=== PATIENT | male | born 1965 | race Caucasian/White ===

== ENCOUNTER 2019-02-24 16:36 | Emergency (ER) | payer SELFPAY ==
--- NOTE | 2019-02-24 18:09 | EDM.PDOC ---
ED HPI GENERAL MEDICAL PROBLEM - General Chief Complaint: Abdominal Pain Stated Complaint: GASTROINTESTINAL PROBLEM Time Seen by Provider: 02/24/19 17:03 - History of Present Illness INITIAL COMMENTS - FREE TEXT/NARRATIVE: 54-year-old male presents to emergency room with abdominal discomfort. This is been an ongoing problem for several weeks. When the patient has a BM he passes very small amounts of mucousy blood streaks material. He's had some abdominal distention and discomfort. He's not had any nausea and vomiting up until this morning he didn't throw up but he couldn't drink his coffee. He has not had any fevers or chills he is passed a few blood clots and he's noticed some blood in the toilet. His appetite is diminished. The patient adds that he has not had a solid normal bowel movement in 3 months. Rectal Pain Score (Numeric/FACES): 10 - Related Data Allergies Allergy/AdvReac Type Severity Reaction Status Date / Time No Known Allergies Allergy Verified 02/24/19 16:49 Home Meds: Home Meds Docusate Sodium [Colace] 100 mg PO DAILY 02/24/19 [History] Ibuprofen [Motrin] 600 mg PO BID 02/24/19 [History] Past Medical History Musculoskeletal History: Reports: Back Pain, Chronic - Past Surgical History GI Surgical History: Reports: Cholecystectomy Musculoskeletal Surgical History: Reports: Carpal Tunnel Social & Family History - Tobacco Use Smoking Status *Q: Current Every Day Smoker Years of Tobacco use: 35 Packs/Tins Daily: 1 - Caffeine Use Caffeine Use: Reports: Coffee, Soda - Recreational Drug Use Recreational Drug Use: No ED ROS GENERAL - Review of Systems Review Of Systems: See Below Constitutional: Reports: No Symptoms HEENT: Reports: No Symptoms Respiratory: Reports: No Symptoms Cardiovascular: Reports: No Symptoms GI/Abdominal: Reports: Constipation (Possible), Diarrhea (Small amounts of mucousy stool some blood). Denies: Nausea, Vomiting : Reports: No Symptoms Musculoskeletal: Reports: No Symptoms Skin: Reports: No Symptoms Neurological: Reports: No Symptoms Psychiatric: Reports: No Symptoms ED EXAM, GI/ABD - Physical Exam Exam: See Below Exam Limited By: No Limitations General Appearance: Alert, No Apparent Distress Neck: Normal Inspection, Supple, Non-Tender, Full Range of Motion Respiratory/Chest: No Respiratory Distress, Lungs Clear, Normal Breath Sounds Cardiovascular: Regular Rate, Rhythm, No Edema, No Murmur GI/Abdominal Exam: Normal Bowel Sounds, Soft, Other (he is obese) Rectal (Males) Exam: Normal Rectal Tone, Heme + Stool, Other (The patient did not tolerate a digital rectal exam very well and was hard to get a good feel of the prostate however he has a large mass in the area where the prostate could be consistent with a enlarged prostate however I cannot exclude another mass. He has a when feels like a small fissure on digital exam a few small hemorrhoids ) Neurological: Alert, Oriented, Normal Cognition Course - Vital Signs Last Recorded V/S: Last Vital Signs Temp 36.2 C 02/24/19 16:48 Pulse 70 02/24/19 16:48 Resp 20 02/24/19 16:48 BP 154/92 H 02/24/19 16:48 Pulse Ox 98 02/24/19 16:48 - Orders/Labs/Meds Orders: Active Orders 24 hr Category Date Time Status Abdomen 2V AP Flat Upright [CR] Stat Exams 02/24/19 18:02 Taken Labs: Laboratory Tests 02/24/19 02/24/19 Range/Units 18:21 18:21 WBC 12.26 H (4.23-9.07) K/mm3 RBC 5.70 (4.63-6.08) M/mm3 Hgb 16.6 (13.7-17.5) gm/L Hct 48.5 (40.1-51.0) % MCV 85.1 (79.0-92.2) fl MCH 29.1 (25.7-32.2) pg MCHC 34.2 (32.2-35.5) g/dl RDW Std Deviation 44.5 H (35.1-43.9) fL Plt Count 243 (163-337) K/mm3 MPV 9.2 L (9.4-12.3) fl Neutrophils % (Manual) 68 H (40-60) % Band Neutrophils % 0 (0-10) % Lymphocytes % (Manual) 23 (20-40) % Atypical Lymphs % 0 % Monocytes % (Manual) 7 (2-10) % Eosinophils % (Manual) 2 (0.8-7.0) % Basophils % (Manual) 0 L (0.2-1.2) Platelet Estimate Adequate RBC Morph Comment Normal Sodium 138 (136-145) mEq/L Potassium 4.2 (3.5-5.1) mEq/L Chloride 103 (98-107) mEq/L Carbon Dioxide 26 (21-32) mEq/L Anion Gap 13.2 (5-15) BUN 13 (7-18) mg/dL Creatinine 0.8 (0.7-1.3) mg/dL Est Cr Clr Drug Dosing 115.04 mL/min Estimated GFR (MDRD) > 60 (>60) mL/min BUN/Creatinine Ratio 16.3 (14-18) Glucose 98 (74-106) mg/dL Calcium 9.6 (8.5-10.1) mg/dL Total Bilirubin 0.9 (0.2-1.0) mg/dL AST 16 (15-37) U/L ALT 18 (16-63) U/L Alkaline Phosphatase 113 (46-116) U/L Total Protein 7.9 (6.4-8.2) g/dl Albumin 4.1 (3.4-5.0) g/dl Globulin 3.8 gm/dL Albumin/Globulin Ratio 1.1 (1-2) - Re-Assessments/Exams Free Text/Narrative Re-Assessment/Exam: 02/24/19 19:36 Reviewed the labs with the patient and the x-ray results and patient x-ray appears like he has a full stool pattern in the ascending transverse and descending colon and about longterm through the sigmoid colon the rectum is clear and a good portion of the sigmoid colon is clear. We have a couple options at this point we can go to a CT of the abdomen and pelvis or we can try mag citrate get the stool situation cleared up and the patient would like to try the mag citrate first. I've explained to him in no uncertain terms that he needs to establish with a regular physician and have a repeat digital rectal exam to reevaluate the prostate/mass issue. CAT scan may or may not show this. However I told the patient that he must get his prostate rechecked and he agrees to do so he also agrees to return to the emergency room with any questions or problems. Regards to his mild rectal bleeding I believe is probably anal in origin. However, again I cannot be certain of this once the constipation stool accumulation is taking care of I would anticipate this would resolve but if it doesn't that would be further indication to have a colonoscopy done. Departure - Departure Time of Disposition: 19:39 Disposition: Home, Self-Care 01 Clinical Impression: Constipation - Discharge Information Referrals: PCP,None [Primary Care Provider] - Forms: ED Department Discharge Additional Instructions: Return to emergency room if any questions problems worsening symptoms. Go to the drugstore tack picker 4 bottles of mag citrate. Take them home, store two just to have on hand. Drink the other 2 tonight. They go down better cold so served with ice. Drink the first one then repeat the second one 30-40 minutes later. Follow-up in the Hospital clinic this next week to establish care to get rechecked. In the near future you need a repeat prostate exam as it feels like a prostate is enlarged. And as we discussed I cannot exclude a mass at this point. Phone number to the Hospital clinic is [phone] - My Orders Last 24 Hours: My Active Orders 02/24/19 18:02 Abdomen 2V AP Flat Upright [CR] Stat - Assessment/Plan Last 24 Hours: My Active Orders 02/24/19 18:02 Abdomen 2V AP Flat Upright [CR] Stat
--- NOTE | 2019-02-28 09:43 | CR ---
Abdomen: Supine and upright views of the abdomen were obtained. Comparison: No previous abdominal x-ray. Mild increased stool is noted throughout the colon. Bowel gas pattern is otherwise unremarkable. Calcifications are seen within the pelvis which are compatible with phleboliths. Surgical clips are seen from prior cholecystectomy. Bony structures are unremarkable. Impression: 1. Mild increased stool within the colon. Nothing acute is seen on two-view abdominal x-ray. Diagnostic code #2
== END 2019-02-24 19:58 | disposition home or self-care (01) ==
LOC: JD.ED 16:36
DX: K59.00 Constipation, unspecified (principal); F17.210 Nicotine dependence, cigarettes, uncomplicated; Z90.49 Acquired absence of other specified parts of digestive tract
CPT/HCPCS: 36415; 74019; 80053; 85007; 85027; 99282; 99284-25

== ENCOUNTER 2019-04-02 10:11 | Emergency (ER) | payer SELFPAY ==
[2019-04-02] MEDS ORDERED: Ondansetron 4 MG/2 ML SDV IVPUSH ONE ×2 (10:33→16:24)
[2019-04-02] MEDS ORDERED: HYDROmorphone 1 MG/ML Syringe IVPUSH ONE ×4 (10:33→16:13)
--- NOTE | 2019-04-02 10:38 | EDM.PDOC ---
ED HPI GENERAL MEDICAL PROBLEM - General Chief Complaint: Abdominal Pain Stated Complaint: ABDOMINAL PAIN FOLLOWING CHEMO Time Seen by Provider: 04/02/19 10:32 Source of Information: Reports: Patient, Family (son) History Limitations: Reports: No Limitations - History of Present Illness INITIAL COMMENTS - FREE TEXT/NARRATIVE: 54-year-old male presents to the ED with diffuse lower abdominal pain which is primarily constant but had does have a strong colicky component. Patient was diagnosed with a rectal mass when he seen Dr. Camarillo in the ED Feb 24 of this year. Subsequent investigations and biopsies proved this to be a rectal carcinoma Patient was diagnosed with a rectal carcinoma within the last month or so and is started chemotherapy last week for the first time. Was on a chemotherapy pump and Wednesday. Presumably leucovorin. States he feels nauseated especially if he tries to drink or eat. Having diffuse lower pelvic cramping pain with some increased stools mostly semi-formed. Small amounts of blood appreciated at times. No problems voiding. The primary reason for coming to the ED is the pain is out of control. Taking tramadol tablets at home with no relief. Onset: Gradual Onset Date: 04/01/19 (Charted having lower abdominal pain yesterday morning and is increased intensity as the day went on.) Duration: Hour(s):, Getting Worse Location: Reports: Abdomen (Diffuse lower abdominal pain associate with cramping and loose semi-formed stools.) Quality: Reports: Ache Severity: Severe (Deep aching pain 10 on a 10) Improves with: Reports: None ( and a 10), Other (Even almost did not give him much relief.) Worsens with: Reports: Other Context: Reports: Other (Seems to be worse or started since chemotherapy was given Wednesday by pump.). Denies: Activity, Exercise, Lifting, Sick Contact, Trauma Associated Symptoms: Reports: Loss of Appetite, Malaise, Nausea/Vomiting, Shortness of Breath. Denies: Confusion, Cough, Rash (Nausea with loss of appetite.), Seizure, Syncope Treatments LOFT RIGGER: Reports: Other (see below) (Tramadol tablets primarily for pain relief and Phenergan for nausea relief.) Abdomen Pain Score (Numeric/FACES): 10 - Related Data Allergies Allergy/AdvReac Type Severity Reaction Status Date / Time No Known Allergies Allergy Verified 04/02/19 10:21 Home Meds: Home Meds Docusate Sodium [Colace] 100 mg PO DAILY 02/24/19 [History] Ibuprofen [Motrin] 600 mg PO BID 02/24/19 [History] Ondansetron [Zofran] 4 mg BUCCAL Q6H PRN #15 tab 04/02/19 [Rx] Promethazine [Phenergan] 5 gm TOP ASDIRECTED 04/02/19 [History] oxyCODONE HCl/Acetaminophen [Oxycodone-Acetaminophen 5-325] 1 tab PO Q4HR PRN [History] oxyCODONE HCl/Acetaminophen [Percocet 5-325 mg Tablet] 1 - 2 each PO Q4H PRN # 36 tablet 04/02/19 [Rx] traMADol [Ultram] 50 mg PO BID PRN 04/02/19 [History] Past Medical History Musculoskeletal History: Reports: Back Pain, Chronic Oncologic (Cancer) History: Reports: Colon (Recently diagnosed with colon cancer low lying rectal carcinoma. Plan is to treated with chemotherapy to see if it can be shrunk prior to considering any surgical management. Apparently has metastatic disease diagnosed by PET scan as well.) - Past Surgical History GI Surgical History: Reports: Cholecystectomy Musculoskeletal Surgical History: Reports: Carpal Tunnel Social & Family History - Caffeine Use Caffeine Use: Reports: Coffee, Soda - Living Situation & Occupation Living situation: Reports: Single Occupation: Employed ED ROS GENERAL - Review of Systems Review Of Systems: See Below Constitutional: Reports: Malaise, Weakness, Fatigue, Decreased Appetite, Weight Loss. Denies: Fever, Chills HEENT: Reports: No Symptoms Respiratory: Reports: Shortness of Breath, Other (Port-A-Cath left upper anterior chest which is just being used now for chemotherapy.) Cardiovascular: Reports: Dyspnea on Exertion. Denies: Chest Pain, Blood Pressure Problem, Claudication, Edema, Lightheadedness, Orthopnea Endocrine: Reports: Fatigue GI/Abdominal: Reports: Abdominal Pain (Across his lower abdomen perhaps worse on the left side as compared to the right.), Constipation (History of recurrent problems with constipation due to rectal mass.), Nausea, Other (Recently diagnosed with rectal carcinoma and just started chemotherapy.) : Reports: Frequency. Denies: Incontinence Musculoskeletal: Reports: Back Pain, Joint Pain (Knees and neck at times) Skin: Reports: No Symptoms Neurological: Reports: No Symptoms Psychiatric: Reports: No Symptoms Hematologic/Lymphatic: Reports: No Symptoms Immunologic: Reports: No Symptoms ED EXAM, GI/ABD - Physical Exam Exam: See Below Exam Limited By: No Limitations General Appearance: Alert, WD/WN, Moderate Distress, Other (Temperatures 36.9. Pulse 72 and sinus respiratory is 18 BP 1 3497 O2 sats 100% on room air.) Eyes: Bilateral: Normal Appearance (No sclerae icterus or bloodflow pallor.) Throat/Mouth: Other Head: Atraumatic (Tongue is very dry and coated.), Normocephalic Neck: Normal Inspection, Supple, Non-Tender, Full Range of Motion. No: Lymphadenopathy (L), Lymphadenopathy (R) Respiratory/Chest: No Respiratory Distress, Lungs Clear, Normal Breath Sounds, No Accessory Muscle Use, Chest Non-Tender Cardiovascular: Normal Peripheral Pulses, Regular Rate, Rhythm, No Edema, No Gallop, No Murmur, No Rub GI/Abdominal Exam: Normal Bowel Sounds, Soft, No Mass (No palpable masses.), Guarding, Tender (Very tender left lower quadrant of the abdomen the distribution of the sigmoid colon.). No: Distended, Rigid (Guarding right left lower quadrant.), Rebound, Hepatomegaly, Splenomegaly (Male) Exam: No Hernia Back Exam: Normal Inspection, Decreased Range of Motion. No: CVA Tenderness (L) , CVA Tenderness (R) Extremities: Normal Inspection, Normal Range of Motion, Non-Tender Neurological: Alert, Oriented, CN II-XII Intact, Normal Cognition Psychiatric: Other Skin Exam: Warm (In a good deal of pain.), Dry, Intact, Normal Color, No Rash Course - Vital Signs Last Recorded V/S: Last Vital Signs Temp 36.9 C 04/02/19 10:24 Pulse 72 04/02/19 10:24 Resp 18 04/02/19 10:24 BP 134/97 H 04/02/19 10:24 Pulse Ox 100 04/02/19 10:24 - Orders/Labs/Meds Orders: Active Orders 24 hr Category Date Time Status Dextrose 5%-Lactated Ringers 1,000 ml Med 04/02/19 10:45 Active IV ASDIRECTED Sodium Chloride 0.9% [Normal Saline] 1,000 ml Med 04/02/19 12:30 Active IV ASDIRECTED Medication Orders Dextrose/Lactated Ringer's (Dextrose 5%-Lactated Ringers) 1,000 mls @ 999 mls/ hr IV ASDIRECTED MICHAELA Last Admin: 04/02/19 10:47 Dose: 999 mls/hr Sodium Chloride (Normal Saline) 1,000 mls @ 200 mls/hr IV ASDIRECTED MICHAELA Last Admin: 04/02/19 13:08 Dose: 200 mls/hr Labs: Laboratory Tests 04/02/19 04/02/19 04/02/19 Range/Units 10:50 10:50 10:50 WBC 9.35 H (4.23-9.07) K/mm3 RBC 5.51 (4.63-6.08) M/mm3 Hgb 15.9 (13.7-17.5) gm/dl Hct 46.9 (40.1-51.0) % MCV 85.1 (79.0-92.2) fl MCH 28.9 (25.7-32.2) pg MCHC 33.9 (32.2-35.5) g/dl RDW Std Deviation 42.4 (35.1-43.9) fL Plt Count 235 (163-337) K/mm3 MPV 9.4 (9.4-12.3) fl Neutrophils % (Manual) 73 H (40-60) % Band Neutrophils % 0 (0-10) % Lymphocytes % (Manual) 19 L (20-40) % Atypical Lymphs % 0 % Monocytes % (Manual) 4 (2-10) % Eosinophils % (Manual) 3 (0.8-7.0) % Basophils % (Manual) 1 (0.2-1.2) Platelet Estimate Adequate RBC Morph Comment Normal ESR 14 (0-15) mm/hr PT 11.3 (9.7-12.0) SECONDS INR 1.04 APTT 27 (22-31) SECONDS Sodium (136-145) mEq/L Potassium (3.5-5.1) mEq/L Chloride (98-107) mEq/L Carbon Dioxide (21-32) mEq/L Anion Gap (5-15) BUN (7-18) mg/dL Creatinine (0.7-1.3) mg/dL Est Cr Clr Drug Dosing mL/min Estimated GFR (MDRD) (>60) mL/min BUN/Creatinine Ratio (14-18) Glucose (74-106) mg/dL Lactic Acid (0.4-2.0) mmol/L Calcium (8.5-10.1) mg/dL Magnesium (1.8-2.4) mg/dl Total Bilirubin (0.2-1.0) mg/dL AST (15-37) U/L ALT (16-63) U/L Alkaline Phosphatase (46-116) U/L Troponin I (0.00-0.056) ng/mL C-Reactive Protein (<1.0) mg/dL NT-Pro-B Natriuret Pep (0-125) pg/mL Total Protein (6.4-8.2) g/dl Albumin (3.4-5.0) g/dl Globulin gm/dL Albumin/Globulin Ratio (1-2) Lipase (73-393) U/L Urine Color (Yellow) Urine Appearance (Clear) Urine pH (5.0-8.0) Ur Specific [place] (1.005-1.030) Urine Protein (Negative) Urine Glucose (UA) (Negative) Urine Ketones (Negative) Urine Occult Blood (Negative) Urine Nitrite (Negative) Urine Bilirubin (Negative) Urine Urobilinogen (0.2-1.0) Ur Leukocyte Esterase (Negative) Urine RBC (0-5) /hpf Urine WBC (0-5) /hpf Ur Epithelial Cells (0-5) /hpf Urine Bacteria (FEW) /hpf Urine Mucus (FEW) /hpf Ketones (0.0-0.3) mM 04/02/19 04/02/19 04/02/19 Range/Units 10:50 10:50 10:50 WBC (4.23-9.07) K/mm3 RBC (4.63-6.08) M/mm3 Hgb (13.7-17.5) gm/dl Hct (40.1-51.0) % MCV (79.0-92.2) fl MCH (25.7-32.2) pg MCHC (32.2-35.5) g/dl RDW Std Deviation (35.1-43.9) fL Plt Count (163-337) K/mm3 MPV (9.4-12.3) fl Neutrophils % (Manual) (40-60) % Band Neutrophils % (0-10) % Lymphocytes % (Manual) (20-40) % Atypical Lymphs % % Monocytes % (Manual) (2-10) % Eosinophils % (Manual) (0.8-7.0) % Basophils % (Manual) (0.2-1.2) Platelet Estimate RBC Morph Comment ESR (0-15) mm/hr PT (9.7-12.0) SECONDS INR APTT (22-31) SECONDS Sodium 139 (136-145) mEq/L Potassium 4.9 (3.5-5.1) mEq/L Chloride 104 (98-107) mEq/L Carbon Dioxide 31 (21-32) mEq/L Anion Gap 8.9 (5-15) BUN 18 (7-18) mg/dL Creatinine 0.9 (0.7-1.3) mg/dL Est Cr Clr Drug Dosing 99.14 mL/min Estimated GFR (MDRD) > 60 (>60) mL/min BUN/Creatinine Ratio 20.0 H (14-18) Glucose 113 H (74-106) mg/dL Lactic Acid 1.1 (0.4-2.0) mmol/L Calcium 9.0 (8.5-10.1) mg/dL Magnesium 2.0 (1.8-2.4) mg/dl Total Bilirubin 0.8 (0.2-1.0) mg/dL AST 21 (15-37) U/L ALT 38 (16-63) U/L Alkaline Phosphatase 109 (46-116) U/L Troponin I < 0.017 (0.00-0.056) ng/mL C-Reactive Protein 1.9 H* (<1.0) mg/dL NT-Pro-B Natriuret Pep 56 (0-125) pg/mL Total Protein 7.2 (6.4-8.2) g/dl Albumin 3.4 (3.4-5.0) g/dl Globulin 3.8 gm/dL Albumin/Globulin Ratio 0.9 L (1-2) Lipase 107 (73-393) U/L Urine Color (Yellow) Urine Appearance (Clear) Urine pH (5.0-8.0) Ur Specific [place] (1.005-1.030) Urine Protein (Negative) Urine Glucose (UA) (Negative) Urine Ketones (Negative) Urine Occult Blood (Negative) Urine Nitrite (Negative) Urine Bilirubin (Negative) Urine Urobilinogen (0.2-1.0) Ur Leukocyte Esterase (Negative) Urine RBC (0-5) /hpf Urine WBC (0-5) /hpf Ur Epithelial Cells (0-5) /hpf Urine Bacteria (FEW) /hpf Urine Mucus (FEW) /hpf Ketones (0.0-0.3) mM 04/02/19 04/02/19 Range/Units 10:50 11:48 WBC (4.23-9.07) K/mm3 RBC (4.63-6.08) M/mm3 Hgb (13.7-17.5) gm/dl Hct (40.1-51.0) % MCV (79.0-92.2) fl MCH (25.7-32.2) pg MCHC (32.2-35.5) g/dl RDW Std Deviation (35.1-43.9) fL Plt Count (163-337) K/mm3 MPV (9.4-12.3) fl Neutrophils % (Manual) (40-60) % Band Neutrophils % (0-10) % Lymphocytes % (Manual) (20-40) % Atypical Lymphs % % Monocytes % (Manual) (2-10) % Eosinophils % (Manual) (0.8-7.0) % Basophils % (Manual) (0.2-1.2) Platelet Estimate RBC Morph Comment ESR (0-15) mm/hr PT (9.7-12.0) SECONDS INR APTT (22-31) SECONDS Sodium (136-145) mEq/L Potassium (3.5-5.1) mEq/L Chloride (98-107) mEq/L Carbon Dioxide (21-32) mEq/L Anion Gap (5-15) BUN (7-18) mg/dL Creatinine (0.7-1.3) mg/dL Est Cr Clr Drug Dosing mL/min Estimated GFR (MDRD) (>60) mL/min BUN/Creatinine Ratio (14-18) Glucose (74-106) mg/dL Lactic Acid (0.4-2.0) mmol/L Calcium (8.5-10.1) mg/dL Magnesium (1.8-2.4) mg/dl Total Bilirubin (0.2-1.0) mg/dL AST (15-37) U/L ALT (16-63) U/L Alkaline Phosphatase (46-116) U/L Troponin I (0.00-0.056) ng/mL C-Reactive Protein (<1.0) mg/dL NT-Pro-B Natriuret Pep (0-125) pg/mL Total Protein (6.4-8.2) g/dl Albumin (3.4-5.0) g/dl Globulin gm/dL Albumin/Globulin Ratio (1-2) Lipase (73-393) U/L Urine Color Yellow (Yellow) Urine Appearance Clear (Clear) Urine pH 6.0 (5.0-8.0) Ur Specific [place] 1.015 (1.005-1.030) Urine Protein Negative (Negative) Urine Glucose (UA) Negative (Negative) Urine Ketones Negative (Negative) Urine Occult Blood Negative (Negative) Urine Nitrite Negative (Negative) Urine Bilirubin Negative (Negative) Urine Urobilinogen 4.0 H (0.2-1.0) Ur Leukocyte Esterase Negative (Negative) Urine RBC Not seen (0-5) /hpf Urine WBC 0-5 (0-5) /hpf Ur Epithelial Cells 0-5 (0-5) /hpf Urine Bacteria Not seen (FEW) /hpf Urine Mucus Rare (FEW) /hpf Ketones 0.2 (0.0-0.3) mM Meds: Medications Generic Name Dose Route Start Last Admin Trade Name Freq PRN Reason Stop Dose Admin Dextrose/Lactated Ringer's 1,000 mls @ 999 mls/hr 04/02/19 10:45 04/02/19 10: 47 Dextrose 5%-Lactated Ringers IV 999 mls/hr ASDIRECTED MICHAELA Administration Sodium Chloride 1,000 mls @ 200 mls/hr 04/02/19 12:30 04/02/19 13:08 Normal Saline IV 200 mls/hr ASDIRECTED MICHAELA Administration Discontinued Medications Generic Name Dose Route Start Last Admin Trade Name Freq PRN Reason Stop Dose Admin Diatrizoate Meglum/Diatrizoate Sod 60 ml 04/02/19 14:46 04/02/19 14:49 Gastrografin 37% PO 04/02/19 14:47 60 ml ONETIME ONE Administration Heparin Sodium (Porcine) 500 units 04/02/19 16:13 04/02/19 16:28 Heparin Lock Flush 100 Units/Ml FLUSH 04/02/19 16:14 500 units NOW STA Administration Hydromorphone HCl 1 mg 04/02/19 10:33 04/02/19 10:47 Dilaudid IVPUSH 04/02/19 10:34 1 mg ONETIME ONE Administration Hydromorphone HCl Confirm 04/02/19 13:03 04/02/19 13:11 Dilaudid Administered 04/02/19 13:04 Not Given Dose 1 mg .ROUTE .STK-MED ONE Hydromorphone HCl 1 mg 04/02/19 13:09 04/02/19 13:09 Dilaudid IVPUSH 04/02/19 13:10 1 mg ONETIME ONE Administration Hydromorphone HCl 1 mg 04/02/19 13:09 04/02/19 15:09 Dilaudid IVPUSH 04/02/19 13:10 1 mg ONETIME ONE Administration Hydromorphone HCl Confirm 04/02/19 16:09 04/02/19 16:28 Dilaudid Administered 04/02/19 16:10 Not Given Dose 1 mg .ROUTE .STK-MED ONE Hydromorphone HCl 1 mg 04/02/19 16:13 04/02/19 16:28 Dilaudid IVPUSH 04/02/19 16:14 1 mg ONETIME ONE Administration Iopamidol 100 ml 04/02/19 14:46 04/02/19 14:49 Isovue-300 (61%) IVPUSH 04/02/19 14:47 100 ml ONETIME ONE Administration Metoclopramide HCl 7.5 mg 04/02/19 12:53 04/02/19 13:08 Reglan IVPUSH 04/02/19 12:54 7.5 mg ONETIME ONE Administration Ondansetron HCl 4 mg 04/02/19 10:33 04/02/19 10:46 Zofran IVPUSH 04/02/19 10:34 4 mg ONETIME ONE Administration Ondansetron HCl 4 mg 04/02/19 16:24 04/02/19 16:28 Zofran IVPUSH 04/02/19 16:25 4 mg ONETIME ONE Administration Ondansetron HCl Confirm 04/02/19 16:24 04/02/19 16:29 Zofran Administered 04/02/19 16:25 Not Given Dose 4 mg .R[facility]TE .[facility] Radiology Interpretation Free Text/Narrative:: 54-year-old male presents to the ED with diffuse lower abdominal pain worse on the left lower quadrant and on the right. Patient states pain came on over the last day and a half after finishing 2 days of chemotherapy with a pump. He was recently diagnosed with a low-lying rectal carcinoma. It is hoped that he can be shrunk by chemotherapy and then surgically excised. Is evidence of metastatic disease on PET scan but he wasn't clear where this was. He has completed only has first phase of chemotherapy just on Wednesday with intravenous pump 48 hours. Presumably leucovorin. On examination he is guarding in the left lower quadrant. Plan routine labs urinalysis serum lipase CRP sedimentation rate and one view of the abdomen to be done. Currently pain is 10 out of 10. He will be given Dilaudid 1 mg IV with Zofran 4 mg IV for nausea relief. IV will be D5 Ringer's lactate at open. - Re-Assessments/Exams Free Text/Narrative Re-Assessment/Exam: 04/02/19 11:36 patient states pain is much improved. He is going to x-ray now. 04/02/19 11:37 Chemistry is back showing a sodium of 139 potassium of 4.9. Chloride was 104 with a bicarbonate 31. Anion gap is 8.9. BUN is 18 with a creatinine of 0.9. GFR remains greater than 60. BUN/creatinine ratio is 20. Glucose 113. Lactic acid 1.1. Calcium 9.0. Magnesium 2.0. Liver function is normal. Troponin I was less than 0.017. C-reactive protein mildly elevated 1.9. Total protein 7.2 with albumin fraction of 3.4. Lipase is 107. Currently ketones at 0.2. 04/02/19 11:47 plain films of the abdomen reveal a lot of air distending both portions of the small bowel as well as large bowel without any signs of obstruction. 04/02/19 12:22 Labs reveal a normal white count at 9.35 with 73% neutrophils and no band cells reported. Hemoglobin is 15.9 with hematocrit of 46.9. Platelet count 235,000. Sedimentation rate is 14. PT is 11.3 with an INR 1.04. PTT is 27. Urinalysis shows 4+ urobilinogen. No other signs of infection or abnormalities. 04/02/19 12:24 patient has completed first liter of IV fluids. Will hang second liter of normal saline at 200 mils per hour. We'll proceed with CT of the abdomen and pelvis with oral and IV contrast to see if this can shed some light on the etiology of his severe pain. 04/02/19 12:54 patient is a little more nauseated since taking oral contrast. He feels he will build to get all the contrast down. Will get repeat antinausea medication Reglan 7.5 mg IV as he had Zofran 4 mg IV the first time. At present his pain isn't too bad and therefore hold off on pain medicine for now. 04/02/19 13:09 patient is requesting further analgesia as the pain is worsening since he started oral contrast. We'll repeat Dilaudid 1 mg IV. 04/02/19: CT of the pelvis is read as diffuse wall thickening seen within the rectum and within the lower sigmoid colon. This finding is more prominent than on previous examination. Diffuse increased density is seen within the lower pelvis which is more prominent than on previous exam as well. Visualized lung bases show nothing acute. Low density is noted next to the ligamentum teres fissure most likely due to a small amount of focal fat. No other parenchymal finding is seen within the liver. Spleen appears to be within normal limits. Adrenal glands on both s are slightly prominent slightly due to mild hyperplasia. Adrenal glands appear similar in appearance to previous exam. Small cyst is noted off the left kidney which is stable from previous exam and measures approximate 1.8 cm. 2 smaller cysts are noted within the right kidney. Adenopathy is seen within the retroperitoneum which has slightly increased in prominence from previous exam. There is some adenopathy noted along the pelvic sidewall which al so has slightly increased in amount from previous exam mild inguinal adenopathy is also noted. Inguinal adenopathy is also slightly increased from previous exam. No mesenteric abnormalities are seen. No free fluid is noted appendix is seen and appears to be within normal limits. Bone window settings were reviewed which show spondylitic defects at L5-S1 with disc space narrowing at L5-S1 and mild spondylosis listhesis. This finding is stable from previous exam.mostides 04/02/19 16:29 having increased nausea. He's had 2 bowel movements since given oral contrast. May repeat Zofran 4 mg sublingually. Departure - Departure Time of Disposition: 16:22 Disposition: Home, Self-Care 01 Condition: Fair Clinical Impression: Pelvic pain in male, Rectal adenocarcinoma Abdominal pain Qualifiers: Abdominal location: left lower quadrant Qualified Code(s): R10.32 - Left lower quadrant pain - Discharge Information *PRESCRIPTION DRUG MONITORING PROGRAM REVIEWED*: Not Applicable *COPY OF PRESCRIPTION DRUG MONITORING REPORT IN PATIENT DEMARCUS: Not Applicable Prescriptions: Ondansetron [Zofran] 4 mg BUCCAL Q6H PRN #15 tab PRN Reason: nausea or vomiting oxyCODONE HCl/Acetaminophen [Percocet 5-325 mg Tablet] 1 - 2 each PO Q4H PRN # 36 tablet PRN Reason: pain relief. Referrals: PCP,Unknown [Ordering Only Provider] - Forms: ED Department Discharge Additional Instructions: Evaluation in the emergency him today in regards to severe pain felt down in the pelvis and rectum area with increased bowel movements since chemotherapy was given on Wednesday and last week. Recent diagnosis of a rectal cancer and recently began chemotherapy. Lab tests to not show any signs of an infection. CT scan of the pelvis reveals diffuse wall thickening within the rectum and within the lower sigmoid colon. Finding is slightly more prominent than on previous examination. Diffuse increased density is seen within the lower pelvis which is more prominent than on previous exam as well. Therefore the pain is likely from tumor enlargement and growth into the surrounding tissues. So be due to the tumor dying from the aggressive chemotherapy given last week which would cause pain as well. At any rate there is no sign that the bowel was blocked off or leaking. Therefore treatment is continued pain medication as needed Percocet 5/325 mg likely 2 tablets every 4-6 hours. Note if you need these tablets very often for pain relief they can cause constipation and you would need to go on MiraLAX powder 17 g or 1 scoop every day to keep the bowels soft and regular. May use Zofran 4 mg under the tongue every 4-6 hours necessary for relief of nausea. Follow-up with Dr. Lubin your oncologist as planned on Wednesday this next week. - My Orders Last 24 Hours: My Active Orders 04/02/19 10:45 Dextrose 5%-Lactated Ringers 1,000 ml IV ASDIRECTED 10/20/19 12:30 Sodium Chloride 0.9% [Normal Saline] 1,000 ml IV ASDIRECTED - Assessment/Plan Last 24 Hours: My Active Orders 04/02/19 10:45 Dextrose 5%-Lactated Ringers 1,000 ml IV ASDIRECTED 04/02/19 12:30 Sodium Chloride 0.9% [Normal Saline] 1,000 ml IV ASDIRECTED
[2019-04-02] MEDS ORDERED: Dextrose 5%-Lactated Ringers 1,000 ML IV SCH (10:45)
--- NOTE | 2019-04-02 12:11 | CR ---
Abdomen: Supine view of the abdomen was obtained. Comparison: Previous abdominal x-ray of 02/24/19. Bowel gas pattern appears within normal limits. Surgical clips are seen from prior cholecystectomy. Calcifications are seen within the pelvis compatible with phleboliths. No discrete soft tissue abnormality is appreciated. Impression: 1. Incidental findings. 2. Nothing acute is appreciated on supine abdominal x-ray. Diagnostic code #2
[2019-04-02] MEDS ORDERED: Sodium Chloride 0.9% 1,000 ML IV SCH (12:30)
[2019-04-02] MEDS ORDERED: Metoclopramide 10 MG/2 ML SDV IVPUSH ONE (12:53)
[2019-04-02] MEDS ORDERED: HYDROmorphone 1 MG/ML Syringe ONE ×2 (13:03→16:09)
[2019-04-02] MEDS ORDERED: Iopamidol 612 MG/ML 100 ML Bottle IVPUSH ONE (14:46)
[2019-04-02] MEDS ORDERED: Diatrizoate Meglumine/Diatrizoate Sodium 37% 120 ML Bottle PO ONE (14:46)
--- NOTE | 2019-04-02 15:12 | CT ---
CT abdomen and pelvis Technique: Multiple axial sections were obtained from above the dome of the diaphragm inferiorly through the pubic symphysis. Intravenous contrast was utilized. Small amount oral contrast is seen. Comparison: Previous CT abdomen and pelvis exam of 03/02/19. Findings: Diffuse wall thickening is seen within the rectum and within the lower sigmoid colon. This finding is more prominent than on previous exam. Diffuse increased density is seen within the lower pelvis which is more prominent than on previous exam. Visualized lung bases show nothing acute. Low density is noted next to the ligamentum teres fissure most likely due to small amount of focal fat. No other parenchymal finding is seen within the liver. Spleen appears within normal limits. Adrenal glands and on both sides are slightly prominent no slightly due to mild hyperplasia. Adrenal glands appear similar in appearance to previous exam. Small cyst is noted off the left kidney which is stable from previous exam and measures approximately 1.8 cm. 2 smaller cysts are noted within the right kidney. Adenopathy is seen within the retroperitoneum which has slightly increased in prominence from previous exam. There is some adenopathy noted along the pelvic sidewall which has also slightly increased in amount from previous exam. Mild inguinal adenopathy is also noted. Inguinal adenopathy as also slightly increased. No mesenteric abnormalities are seen. No free fluid is noted. Appendix is seen and appears within normal limits. Delayed images shows contrast within the bladder. Bone window settings were reviewed which shows spondylitic defects at L5-S1 with disc space narrowing at L5-S1 and mild spondylolisthesis. This finding is stable from previous exam. Impression: 1. Bowel wall thickening within the rectum and sigmoid colon. This presumably represents a combination of the patient's carcinoma and focal colitis. 2. Increasing inflammatory type change within the pelvis. Uncertain if this represents worsening local spread of tumor or vascular congestion causing its apparent increase secondary to metastatic lymph node change. Difficult to exclude inflammatory change from infection. 3. Slight increasing retroperitoneal adenopathy as well as iliac adenopathy and inguinal adenopathy. 4. Slightly prominent size of the adrenal glands which is most likely due to mild hyperplasia which is stable. 5. Other findings as noted above are stable. Diagnostic code #9
[2019-04-02] MEDS ORDERED: Ondansetron 4 MG/2 ML SDV ONE (16:24)
== END 2019-04-02 17:00 | disposition home or self-care (01) ==
LOC: JD.ED 10:11
DX: C20 Malignant neoplasm of rectum (principal); R10.32 Left lower quadrant pain; R10.2 Pelvic and perineal pain
CPT/HCPCS: 36415; 74018; 74177; 80053; 81001; 82009; 83605; 83690; 83735; 83880; 84484; 85007; 85027; 85610; 85652; 85730; 86140; 96361; 96374; 96375; 96376; 99284; J1170; J1642; J2405; J2765; J7040; J7042; Q9963; Q9967; 99285

== ENCOUNTER 2019-05-13 17:25 | Emergency (ER) | payer SELFPAY ==
--- NOTE | 2019-05-13 18:53 | EDM.PDOC ---
ED HPI GENERAL MEDICAL PROBLEM - General Chief Complaint: Abdominal Pain Stated Complaint: COLON CANCER -ABD PAIN, BLOOD IN STOOL Time Seen by Provider: 05/13/19 18:13 Source of Information: Reports: Patient, Family (Son) History Limitations: Reports: No Limitations - History of Present Illness INITIAL COMMENTS - FREE TEXT/NARRATIVE: Mr. Orozco is a pleasant 54 year old man with a past medical history significant for rectal carcinoma, initially discovered on physical exam on 2018, confirmed with subsequent follow-up. The patient is stage IIIc or IV, and is currently receiving FOLFOX chemotherapy every 2 weeks. His most recent dose was on 04/26/2019. He was scheduled to receive another dose this past 05/10/2019, however, the patient states that there were some problems with his blood work, therefore he received an injection of something else, and no chemotherapy. He states that he also underwent a CT scan of his abdomen and pelvis, however, he does not know the results of that test. He has an appointment to follow-up with his Oncologist this coming 05/16/2019. While he has undergone a single colonoscopy per his colorectal surgeon, he has not yet undergone any colorectal surgery or radiation therapy. The patient now presents to the ED stating that he has had left lower quadrant abdominal pain and left SI joint-area pain for the past 3 weeks. He is unable to describe the character of his pain other than "it hurts". He also reports that he developed a headache on 05/10/2019, and has felt diaphoretic and flushed since yesterday. He developed watery diarrhea today, and his most recent bowel movement, around 16:30, was bloody. He took a single tablet of Lomotil. No recent fever, and he is afebrile here in the ED. No recent cough. He reports slight shortness of breath today. No chest pain or palpitations. No nausea, vomiting, or constipation. No recent urinary symptoms. The patient's PCP is CADEN Ortiz. His Oncologist is Dr. Jl Lubin. His Colorectal Surgeon is Dr. Rodrigo Honeycutt. His Radiation Oncologist is Dr. Nakul Ortiz. Left Abdomen Pain Score (Numeric/FACES): 7 - Related Data Allergies Allergy/AdvReac Type Severity Reaction Status Date / Time No Known Allergies Allergy Verified 04/02/19 10:21 Home Meds: Home Meds Docusate Sodium [Colace] 100 mg PO DAILY 02/24/19 [History] Ibuprofen [Motrin] 600 mg PO BID 02/24/19 [History] Ondansetron [Zofran] 4 mg BUCCAL Q6H PRN #15 tab 04/02/19 [Rx] Promethazine [Phenergan] 5 gm TOP ASDIRECTED 04/02/19 [History] oxyCODONE HCl/Acetaminophen [Oxycodone-Acetaminophen 5-325] 1 tab PO Q4HR PRN [History] oxyCODONE HCl/Acetaminophen [Percocet 5-325 mg Tablet] 1 - 2 each PO Q4H PRN # 36 tablet 04/02/19 [Rx] traMADol [Ultram] 50 mg PO BID PRN 04/02/19 [History] Past Medical History Oncologic (Cancer) History: Reports: Colon (Stage IIIc or IV, on CTx) - Past Surgical History HEENT Surgical History: Reports: Oral Surgery (edentulous), Tonsillectomy, Other (See Below) (Bilateral ear surgery as an infant) Cardiovascular Surgical History: Reports: Other (See Below) (Left Port-A-Cath) GI Surgical History: Reports: Cholecystectomy (2013), Colonoscopy (x 1) Neurological Surgical History: Reports: Lumbar Spine (microdiscectomy around 1999) Musculoskeletal Surgical History: Reports: Carpal Tunnel (bilateral) Social & Family History - Tobacco Use Smoking Status *Q: Current Every Day Smoker Years of Tobacco use: 43 Packs/Tins Daily: 1 - Caffeine Use Caffeine Use: Reports: Coffee, Soda - Alcohol Use Alcohol Use History: Yes Alcohol Use Frequency: Rarely - Recreational Drug Use Recreational Drug Use: Yes Drug Use in Last 12 Months: No Recreational Drug Type: Reports: Marijuana/Hashish (last smoked around 2009), Methamphetamine (last smoked/injected 2011) - Living Situation & Occupation Living situation: Reports: , with Family (Son) 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 Musculoskeletal: Reports: Back Pain ED EXAM, GI/ABD - Physical Exam Exam: See Below Exam Limited By: No Limitations General Appearance: Alert, WD/WN, No Apparent Distress Eyes: Bilateral: Normal Appearance, EOMI Ears: Normal External Exam, Hearing Grossly Normal Nose: Normal Inspection Throat/Mouth: Normal Inspection, Normal Lips, Normal Voice, No Airway Compromise Head: Atraumatic, Normocephalic Neck: Normal Inspection, Full Range of Motion Respiratory/Chest: No Respiratory Distress, Lungs Clear, Normal Breath Sounds, No Accessory Muscle Use Cardiovascular: Normal Peripheral Pulses, Regular Rate, Rhythm, No Gallop, No JVD, No Murmur, No Rub GI/Abdominal Exam: Normal Bowel Sounds, Soft, No Organomegaly, No Distention, No Abnormal Bruit, No Mass, Tender (Primarily the LLQ, but also some tenderness in the RUQ. Completely nontender elsewhere.) (Male) Exam: Deferred Rectal (Males) Exam: Normal Rectal Tone, Heme + Stool, Mass (palpable at fingertip) Back Exam: Normal Inspection, Full Range of Motion. No: CVA Tenderness (L), CVA Tenderness (R), Paraspinal Tenderness (including over the left SI joint), Vertebral Tenderness Extremities: Normal Inspection, Normal Range of Motion, No Pedal Edema, Normal Capillary Refill Neurological: Alert, Oriented, Normal Cognition, No Motor/Sensory Deficits Psychiatric: Normal Affect Skin Exam: Warm, Dry, Intact, Normal Color, No Rash Course - Vital Signs Last Recorded V/S: Last Vital Signs Temp 35.6 C 05/13/19 17:33 Pulse Resp BP Pulse Ox - Orders/Labs/Meds Orders: Active Orders 24 hr Category Date Time Status Fecal Occult Blood Collection [RC] ASDIRECTED Care 05/13/19 19:29 Active Labs: Laboratory Tests 05/13/19 Range/Units 19:20 WBC 32.23 H (4.23-9.07) K/mm3 RBC 4.61 L (4.63-6.08) M/mm3 Hgb 13.3 L D (13.7-17.5) gm/dl Hct 39.8 L (40.1-51.0) % MCV 86.3 (79.0-92.2) fl MCH 28.9 (25.7-32.2) pg MCHC 33.4 (32.2-35.5) g/dl RDW Std Deviation 48.7 H (35.1-43.9) fL Plt Count 223 (163-337) K/mm3 MPV 9.1 L (9.4-12.3) fl Neut % (Auto) Cancelled Lymph % (Auto) Cancelled [place] % (Auto) Cancelled Eos % (Auto) Cancelled Baso % (Auto) Cancelled Neut # (Auto) Cancelled Lymph # (Auto) Cancelled [place] # (Auto) Cancelled Eos # (Auto) Cancelled Baso # (Auto) Cancelled Neutrophils % (Manual) 50 (40-60) % Band Neutrophils % 5 (0-10) % Lymphocytes % (Manual) 21 (20-40) % Atypical Lymphs % 9 % Monocytes % (Manual) 11 H (2-10) % Eosinophils % (Manual) 3 (0.8-7.0) % Basophils % (Manual) 1 (0.2-1.2) Manual Slide Review Cancelled Toxic Granulation Moderate Platelet Estimate Adequate RBC Morph Comment Normal - Re-Assessments/Exams Free Text/Narrative Re-Assessment/Exam: 05/13/19 18:48 Since the patient just had a workup, including a CT scan of his abdomen and pelvis, this past 05/10/2019, I don't know if it is necessary to repeat the workup tonight, however, his workup was performed at [place], and I do not have access to any of those results. We attempted to contact the patient' s Oncologist, Dr. Lubin, however, he is apparently not distribution associate. I can speak to the Oncologist who is on-call, however, because if they have access to Wednesday 's test results, they may be able to answer all of my questions. 05/13/19 19:03 Case discussed with Sharona at [place] [facility] at 18:51. Case then discussed with Dr. Pierson, Oncologist on-call, at 18:55. He reported that the patient is stage IIIc or possibly IV - the patient has lesions in the liver and femur that have not been biopsied. He is receiving FOLFOX every 2 weeks, a treatment that is usually reserved for patients with stage IV colon cancer. Dr. Lubin planned for the patient to receive 4 rounds of this chemotherapy , then reevaluate to see if surgery would be of benefit. The patient's WBC count was 3.6 on 05/10/2019. He was given filgrastim (Grastofil) as a result. His H/H was 13.4/39.7, but his Hgb has been slowly declining - it was 14.2 on a prior evaluation. Dr. Pierson suspects that the rectal bleeding is from the rectal carcinoma. He recommended that I check an H/H, and that if his Hgb is < 12.0, that I transfuse 1 unit of PRBCs. If his Hgb is > 12.0, I can discharge the patient home and have him follow-up with Dr. Lubin at his previously scheduled appointment this coming 05/16/2019. In the meantime, the patient would take his previously prescribed Lomotil to treat his diarrhea. 05/13/19 20:15 The patient's CBC is remarkable for a WBC count is significantly elevated at 32.23, with 5% bandemia. His H/H is 13.3/39.8, with the remainder of his CBC being unremarkable. Case discussed with Sharona at [facility] at 20:10. She attempted to reach Dr. Pierson, however, the call went to Send the [employer]. She will call us back when she is able to reach Dr. Pierson. 05/13/19 20:35 Called back by Sharona and Dr. Pierson at 20:35. He is not concerned about the elevated WBC count or bandemia; that is a normal response to filgrastim. We will therefore proceed with the above plan of discharging the patient home and having him follow up with Dr. Lubin on Wednesday. Departure - Departure Time of Disposition: 20:36 Disposition: Home, Self-Care 01 Condition: Good Clinical Impression: Bloody diarrhea - Discharge Information *PRESCRIPTION DRUG MONITORING PROGRAM REVIEWED*: Not Applicable *COPY OF PRESCRIPTION DRUG MONITORING REPORT IN PATIENT DEMARCUS: Not Applicable Referrals: Jl Lubin MD [Primary Care Provider] - Martha Olivier PA-C [Physician Mold Press Operator] - Rodrigo Honeycutt MD [Ordering Only Provider] - Nakul Ortiz MD [Ordering Only Provider] - Forms: ED Department Discharge Additional Instructions: You were seen in the emergency room after developing watery diarrhea today and bloody diarrhea this afternoon. Your case was discussed with the Oncologist Dr. Pierson, who was able to review your medical records and recommended that we check your hemoglobin level. Your hemoglobin has remained stable, therefore a blood transfusion was not needed. We recommend that you take your Lomotil as prescribed, as needed to control your diarrhea. Stay adequately hydrated. Gatorade or Powerade are best. Follow-up with your Oncologist, Dr. Jl Lubin, at your previously scheduled appointment this coming 05/16/2019. If any other problems, please do not hesitate to return to the ER. - My Orders Last 24 Hours: My Active Orders 05/13/19 19:29 Fecal Occult Blood Collection [RC] ASDIRECTED - Assessment/Plan Last 24 Hours: My Active Orders 05/13/19 19:29 Fecal Occult Blood Collection [RC] ASDIRECTED
== END 2019-05-13 20:44 | disposition home or self-care (01) ==
LOC: JD.ED 17:25
DX: R19.5 Other fecal abnormalities (principal); F17.210 Nicotine dependence, cigarettes, uncomplicated
CPT/HCPCS: 36415; 85007; 85027; 99283; 99284

== ENCOUNTER 2019-06-14 21:18 | Emergency (ER) | payer BC ==
--- NOTE | 2019-06-14 21:33 | EDM.PDOC ---
ED HPI GENERAL MEDICAL PROBLEM - General Chief Complaint: Gastrointestinal Problem Stated Complaint: CA PT NEEDS FLUIDS Time Seen by Provider: 06/14/19 21:32 - History of Present Illness INITIAL COMMENTS - FREE TEXT/NARRATIVE: 54-year-old male presents the emergency room after being instructed by his oncologist to come in. The patient was getting IV fluids on a fairly regular basis this stopped last week and now he is getting a little jittery and he does this when he gets dry. He discussed it with the on-call oncologist who recommended he come in and get some fluids. He also is having some cramping in his hands and muscles. The patient is on chemotherapy and getting the radiation at this point not having any fevers or chills otherwise feels okay he is taking fluids perhaps not as he once did but this is improving somewhat. He is eating on a semiregular basis. He has no other complaints no other pains or difficulties at this time Headache Pain Score (Numeric/FACES): 5 - Related Data Allergies Allergy/AdvReac Type Severity Reaction Status Date / Time No Known Allergies Allergy Verified 06/14/19 21:24 Home Meds: Home Meds oxyCODONE HCl/Acetaminophen [Oxycodone-Acetaminophen 5-325] 1 tab PO Q6H PRN [History] Albuterol Sulfate [Albuterol Sulfate Hfa] 1 - 2 puff INH Q4H 06/14/19 [History] Bisacodyl 5 mg PO DAILY 06/14/19 [History] Diphenoxylate HCl/Atropine [Diphenoxylate-Atrop 2.5-0.025] 1 each PO Q4H PRN 07/03 [History] Magnesium Citrate [Citrate of Magnesia] 296 ml PO ASDIRECTED PRN 06/14/19 [ History] Magnesium Hydroxide [Milk of Magnesia] 30 ml PO BEDTIME PRN 06/14/19 [History] Ondansetron [Zofran] 8 mg BUCCAL TID PRN 06/14/19 [History] Polyethylene Glycol [Polyox Wsr-301] 1 capful PO DAILY 06/14/19 [History] Sucralfate 1 gm PO QID 06/14/19 [History] dexAMETHasone [Dexamethasone] 8 mg PO DAILY 06/14/19 [History] fentaNYL [Duragesic] 50 mcg TD Q72H 06/14/19 [History] oxyCODONE 10 - 15 mg PO Q6H PRN 06/14/19 [History] Past Medical History Musculoskeletal History: Reports: Back Pain, Chronic Oncologic (Cancer) History: Reports: Colon - Past Surgical History HEENT Surgical History: Reports: Oral Surgery, Tonsillectomy, Other (See Below) GI Surgical History: Reports: Cholecystectomy, Colonoscopy Neurological Surgical History: Reports: Lumbar Spine Musculoskeletal Surgical History: Reports: Carpal Tunnel Social & Family History - Caffeine Use Caffeine Use: Reports: Coffee, Soda - Living Situation & Occupation Living situation: Reports: , with Family (Son) 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 Denies: Constipation, Diarrhea, Nausea, Vomiting : Reports: No Symptoms Musculoskeletal: Reports: No Symptoms ED EXAM, GI/ABD - Physical Exam Exam: See Below Exam Limited By: No Limitations General Appearance: Alert, No Apparent Distress Head: Atraumatic, Normocephalic Neck: Normal Inspection, Supple, Non-Tender, Full Range of Motion Respiratory/Chest: No Respiratory Distress, Lungs Clear, Normal Breath Sounds Cardiovascular: Regular Rate, Rhythm, No Edema, No Murmur GI/Abdominal Exam: Normal Bowel Sounds, Soft, Non-Tender Back Exam: Normal Inspection. No: CVA Tenderness (L), CVA Tenderness (R) Extremities: Normal Inspection, Non-Tender, No Pedal Edema Neurological: Alert, Oriented, Normal Cognition Course - Vital Signs Last Recorded V/S: Last Vital Signs Temp 36.9 C 06/14/19 21:25 Pulse 65 06/14/19 21:25 Resp 20 06/14/19 21:25 BP 137/92 H 06/14/19 21:25 Pulse Ox 94 L 06/14/19 21:25 - Orders/Labs/Meds Orders: Active Orders 24 hr Category Date Time Status Sodium Chloride 0.9% [Normal Saline] 1,000 ml Med 06/14/19 22:30 Active IV ASDIRECTED Medication Orders Sodium Chloride (Normal Saline) 1,000 mls @ 999 mls/hr IV ASDIRECTED MICHAELA Last Admin: 06/14/19 23:11 Dose: 999 mls/hr Labs: Laboratory Tests 06/14/19 06/14/19 Range/Units 22:20 22:20 WBC 12.12 H (4.23-9.07) K/mm3 RBC 4.90 (4.63-6.08) M/mm3 Hgb 14.4 (13.7-17.5) gm/dl Hct 42.7 (40.1-51.0) % MCV 87.1 (79.0-92.2) fl MCH 29.4 (25.7-32.2) pg MCHC 33.7 (32.2-35.5) g/dl RDW Std Deviation 52.1 H (35.1-43.9) fL Plt Count 209 (163-337) K/mm3 MPV 9.2 L (9.4-12.3) fl Neutrophils % (Manual) 62 H (40-60) % Band Neutrophils % 2 (0-10) % Lymphocytes % (Manual) 23 (20-40) % Atypical Lymphs % 0 % Monocytes % (Manual) 10 (2-10) % Eosinophils % (Manual) 2 (0.8-7.0) % Basophils % (Manual) 1 (0.2-1.2) Platelet Estimate Adequate RBC Morph Comment Normal Sodium 139 (136-145) mEq/L Potassium 4.1 (3.5-5.1) mEq/L Chloride 102 (98-107) mEq/L Carbon Dioxide 27 (21-32) mEq/L Anion Gap 14.1 (5-15) BUN 17 (7-18) mg/dL Creatinine 0.7 (0.7-1.3) mg/dL Est Cr Clr Drug Dosing 131.48 mL/min Estimated GFR (MDRD) > 60 (>60) mL/min BUN/Creatinine Ratio 24.3 H (14-18) Glucose 102 (74-106) mg/dL Calcium 9.2 (8.5-10.1) mg/dL Magnesium 1.9 (1.8-2.4) mg/dl Total Bilirubin 0.3 (0.2-1.0) mg/dL AST 12 L (15-37) U/L ALT 16 (16-63) U/L Alkaline Phosphatase 95 (46-116) U/L Total Protein 7.2 (6.4-8.2) g/dl Albumin 3.4 (3.4-5.0) g/dl Globulin 3.8 gm/dL Albumin/Globulin Ratio 0.9 L (1-2) Meds: Medications Generic Name Dose Route Start Last Admin Trade Name Crissy PRN Reason Stop Dose Admin Sodium Chloride 1,000 mls @ 999 mls/hr 06/14/19 22:30 06/14/19 23:11 Normal Saline IV 999 mls/hr ASDIRECTED MICHAELA Administration Discontinued Medications Generic Name Dose Route Start Last Admin Trade Name Crissy PRN Reason Stop Dose Admin Lactated Ringer's 1,000 mls @ 999 mls/hr 06/14/19 21:44 Ringers, Lactated IV 06/14/19 22:44 .BOLUS ONE - Re-Assessments/Exams Free Text/Narrative Re-Assessment/Exam: 06/15/19 00:26 Patient doing much better after a liter of fluid and he would like to go home. Departure - Departure Time of Disposition: 00:26 Disposition: DC/Tfer to [facility] Clinical Impression: Dehydration, mild - Discharge Information Referrals: Martha Olivier PA-C [Primary Care Provider] - Forms: ED Department Discharge Additional Instructions: And to the emergency room with any questions problems or worsening symptoms. Follow-up with your regular providers as scheduled Sepsis Event Note - Evaluation Sepsis Screening Result: No Definite Risk - Focused Exam Vital Signs: Vital Signs Temp Pulse Resp BP Pulse Ox 06/14/19 21:25 36.9 C 65 20 137/92 H 94 L Date Exam was Performed: 06/15/19 Time Exam was Performed: 00:26 - My Orders Last 24 Hours: My Active Orders 06/14/19 22:30 Sodium Chloride 0.9% [Normal Saline] 1,000 ml IV ASDIRECTED - Assessment/Plan Last 24 Hours: My Active Orders 06/14/19 22:30 Sodium Chloride 0.9% [Normal Saline] 1,000 ml IV ASDIRECTED
[2019-06-14] MEDS ORDERED: Lactated Ringers 1,000 ML IV ONE (21:44)
[2019-06-14] MEDS ORDERED: Sodium Chloride 0.9% 1,000 ML IV SCH (22:30)
== END 2019-06-15 00:31 | disposition home or self-care (01) ==
LOC: JD.ED 21:18
DX: E86.0 Dehydration (principal); Z79.899 Other long term (current) drug therapy
CPT/HCPCS: 36415; 80053; 83735; 85007; 85027; 96360; 99284; J7030; 99283

== ENCOUNTER 2019-08-04 13:29 | Emergency (ER) | payer BC ==
[2019-08-04] MEDS ORDERED: Hyoscyamine 0.125 MG Tab.SL SL ONE ×2 (14:13→17:43)
[2019-08-04] MEDS ORDERED: Lactulose Soln 10 GM/15 ML 30 ML UD Cup PO ONE (14:14)
--- NOTE | 2019-08-04 14:47 | EDM.PDOC ---
ED HPI GENERAL MEDICAL PROBLEM - General Chief Complaint: Abdominal Pain Stated Complaint: CONSTIPATION Time Seen by Provider: 08/04/19 13:50 Source of Information: Reports: Patient, Old Records (CT report and images from [facility] today), RN Notes Reviewed History Limitations: Reports: No Limitations - History of Present Illness INITIAL COMMENTS - FREE TEXT/NARRATIVE: Patient is a 54-year-old male who presents to the ED for the evaluation of constipation. He notes that he is a patient of Dr. Osei, and he was diagnosed with colorectal cancer in the fall of this last year. He has been having chemo and radiation since then, he states that his next round of chemo is August 15. Patient states that he has not had a real good bowel movement in the last 10 days. He states he goes little bits, but has not had a full movement in a while. He also states that he is getting some what he calls "granular tissue" with some of the stools, he does not notice any blood in the stools. Patient states that he is on narcotic pain medication due to the pain, and he has been having issues with being constipated, and then having diarrhea. His last dose of oxycodone was at 8 AM this morning. He states around 2 weeks ago he was hospitalized in [place], and was given some pills by the GI specialist, to help his rectum spasms. He states these are quite painful when he has to go to the bathroom which also helps him to not have bowel movements like he should. Patient states he did take 2 bottles of magnesium citrate, and a mineral oil enema yesterday, he did not receive very good results from this. He is not complaining of any fevers or chills, chest pain or shortness of breath, but is having some generalized abdominal discomfort and very minor distention. He was evaluated at the walk-in clinic for his abdominal discomfort, and his CT report reads as follows: 1. Large amount of stool throughout the colon. 2. Stable appearance of the distal sigmoid colon and rectal malignancy with diffuse wall thickening. 3. Stable pelvic inflammatory/edematous or radiation changes. 4. Stable bilateral inguinal, iliac, pelvic, retroperitoneal metastatic lymphadenopathy. 5. 8 mm nodule in the left lower pulmonary lobe stable since 03/22/2019. 6. Stable sclerotic lesions in the bony pelvis which may be due to old metastatic disease. Other Treatments STRAPPER: mag citrate, mineral oil enema Abdomen Pain Score (Numeric/FACES): 7 - Related Data Allergies Allergy/AdvReac Type Severity Reaction Status Date / Time No Known Allergies Allergy Verified 06/14/19 21:24 Home Meds: Home Meds oxyCODONE HCl/Acetaminophen [Oxycodone-Acetaminophen 5-325] 2 - 3 tab PO Q6H PRN 04/02/19 [History] Albuterol Sulfate [Albuterol Sulfate Hfa] 1 - 2 puff INH Q4H 06/14/19 [History] Bisacodyl 5 mg PO DAILY 06/14/19 [History] Diphenoxylate HCl/Atropine [Diphenoxylate-Atrop 2.5-0.025] 2 tab PO TID PRN 07/03 [History] Magnesium Citrate [Citrate of Magnesia] 296 ml PO ASDIRECTED PRN 06/14/19 [ History] Magnesium Hydroxide [Milk of Magnesia] 30 ml PO BEDTIME PRN 06/14/19 [History] Ondansetron [Zofran] 8 mg BUCCAL TID PRN 06/14/19 [History] Sucralfate 1 gm PO QID 06/14/19 [History] fentaNYL [Duragesic] 50 mcg TD Q72H 06/14/19 [History] oxyCODONE 5 - 325 mg PO Q6H PRN 06/14/19 [History] Hyoscyamine Sulfate [Hyoscyamine Sulfate Sr] 1 tab PO BID PRN 08/04/19 [History] LORazepam [Ativan] 0.5 mg PO QID PRN 08/04/19 [History] Lactulose [Cephulac] 20 gm PO DAILY #30 cup 08/04/19 [Rx] Past Medical History Musculoskeletal History: Reports: Back Pain, Chronic Oncologic (Cancer) History: Reports: Colon (colorectal CA) - Past Surgical History HEENT Surgical History: Reports: Oral Surgery, Tonsillectomy, Other (See Below) Cardiovascular Surgical History: Reports: Other (See Below) GI Surgical History: Reports: Cholecystectomy, Colonoscopy (last done Feb 2019) Neurological Surgical History: Reports: Lumbar Spine Musculoskeletal Surgical History: Reports: Carpal Tunnel Social & Family History - Tobacco Use Smoking Status *Q: Current Every Day Smoker Years of Tobacco use: 40 Packs/Tins Daily: 1 - Caffeine Use Caffeine Use: Reports: Coffee - Recreational Drug Use Recreational Drug Use: No - Living Situation & Occupation Living situation: Reports: , with Family (Son) 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 Denies: Bloody Stool, Diarrhea, Vomiting : Denies: Dysuria ED EXAM, GI/ABD - Physical Exam Exam: See Below Exam Limited By: No Limitations General Appearance: Alert, WD/WN, No Apparent Distress Eyes: Bilateral: Normal Appearance, EOMI Throat/Mouth: Normal Inspection, Normal Lips, Normal Teeth, Normal Gums, Normal Oropharynx, Normal Voice, No Airway Compromise Head: Atraumatic Neck: Normal Inspection Respiratory/Chest: No Respiratory Distress, Lungs Clear, Normal Breath Sounds, No Accessory Muscle Use, Chest Non-Tender Cardiovascular: Normal Peripheral Pulses, Regular Rate, Rhythm, No Murmur GI/Abdominal Exam: Soft, Distended (very mild, he states that he gets bloated at times, but his abdomen feels cheung than normal), Tender (generalized tenderness, worse on lateral abdomen), Abnormal Bowel Sounds (hypoactive tones x 4). No: Rigid Extremities: Normal Inspection, Normal Capillary Refill Neurological: Alert, Oriented, Normal Cognition, No Motor/Sensory Deficits Psychiatric: Normal Affect, Normal Mood Skin Exam: Warm, Dry, Intact, Normal Color, No Rash Course - Vital Signs Last Recorded V/S: Last Vital Signs Temp 98.0 F 08/04/19 13:45 Pulse 59 L 08/04/19 13:45 Resp 20 08/04/19 13:45 BP 160/93 H 08/04/19 13:45 Pulse Ox 98 08/04/19 13:45 - Orders/Labs/Meds Orders: Active Orders 24 hr Category Date Time Status Enema [RC] ASDIRECTED Care 08/04/19 17:20 Ordered Peripheral IV Care [RC] . DIRECTED Care 08/04/19 14:52 Active Sodium Chloride 0.9% [Saline Flush] Med 08/04/19 14:52 Active 10 ml FLUSH ASDIRECTED PRN Peripheral IV Insertion Adult [OM.PC] Routine Oth 08/04/19 14:52 Ordered Medication Orders Sodium Chloride (Saline Flush) 10 ml FLUSH ASDIRECTED PRN PRN Reason: Keep Vein Open Last Admin: 08/04/19 15:13 Dose: 10 ml Labs: Laboratory Tests 08/04/19 08/04/19 Range/Units 14:56 15:15 WBC 6.54 (4.23-9.07) K/mm3 RBC 4.18 L (4.63-6.08) M/mm3 Hgb 12.7 L D (13.7-17.5) gm/dl Hct 39.7 L (40.1-51.0) % MCV 95.0 H D (79.0-92.2) fl MCH 30.4 (25.7-32.2) pg MCHC 32.0 L (32.2-35.5) g/dl RDW Std Deviation 60.4 H (35.1-43.9) fL Plt Count 224 (163-337) K/mm3 MPV 9.1 L (9.4-12.3) fl Neut % (Auto) 81.3 H (34.0-67.9) % Lymph % (Auto) 5.0 L (21.8-53.1) % [place] % (Auto) 11.5 (5.3-12.2) % Eos % (Auto) 1.4 (0.8-7.0) Baso % (Auto) 0.3 (0.1-1.2) % Neut # (Auto) 5.32 (1.78-5.38) K/mm3 Lymph # (Auto) 0.33 L (1.32-3.57) K/mm3 [place] # (Auto) 0.75 (0.30-0.82) K/mm3 Eos # (Auto) 0.09 (0.04-0.54) K/mm3 Baso # (Auto) 0.02 (0.01-0.08) K/mm3 Manual Slide Review Abnormal smear Sodium 143 (136-145) mEq/L Potassium 4.0 (3.5-5.1) mEq/L Chloride 106 (98-107) mEq/L Carbon Dioxide 28 (21-32) mEq/L Anion Gap 13.0 (5-15) BUN 8 (7-18) mg/dL Creatinine 0.7 (0.7-1.3) mg/dL Est Cr Clr Drug Dosing 131.48 mL/min Estimated GFR (MDRD) > 60 (>60) mL/min BUN/Creatinine Ratio 11.4 L (14-18) Glucose 97 (74-106) mg/dL Calcium 8.9 (8.5-10.1) mg/dL Total Bilirubin 0.5 (0.2-1.0) mg/dL AST 11 L (15-37) U/L ALT 15 L (16-63) U/L Alkaline Phosphatase 91 (46-116) U/L Total Protein 6.8 (6.4-8.2) g/dl Albumin 3.4 (3.4-5.0) g/dl Globulin 3.4 gm/dL Albumin/Globulin Ratio 1.0 (1-2) Lipase 45 L (73-393) U/L Meds: Medications Generic Name Dose Route Start Last Admin Trade Name Freq PRN Reason Stop Dose Admin Sodium Chloride 10 ml 08/04/19 14:52 08/04/19 15:13 Saline Flush FLUSH 10 ml ASDIRECTED PRN Administration Keep Vein Open Discontinued Medications Generic Name Dose Route Start Last Admin Trade Name Freq PRN Reason Stop Dose Admin Hyoscyamine 0.125 mg 08/04/19 14:13 08/04/19 14:28 Hyomax-Sl SL 08/04/19 14:14 0.125 mg ONETIME ONE Administration Hyoscyamine 0.125 mg 08/04/19 17:43 08/04/19 17:53 Hyomax-Sl SL 08/04/19 17:44 0.125 mg ONETIME ONE Administration Sodium Chloride 1,000 mls @ 999 mls/hr 08/04/19 14:52 08/04/19 15:05 Normal Saline IV 08/04/19 15:52 999 mls/hr ONETIME ONE Administration Lactulose 20 gm 08/04/19 14:14 08/04/19 14:28 Cephulac PO 08/04/19 14:15 20 gm ONETIME ONE Administration Metoclopramide HCl 10 mg 08/04/19 14:53 08/04/19 15:05 Reglan IVPUSH 08/04/19 14:54 10 mg ONETIME ONE Administration Oxycodone HCl 10 mg 08/04/19 17:13 08/04/19 17:40 Oxycodone PO 08/04/19 17:14 10 mg ONETIME ONE Administration Polyethylene Glycol/Electrolytes 4,000 ml 08/04/19 17:20 Golytely PO 08/04/19 17:21 ONETIME ONE - Re-Assessments/Exams Free Text/Narrative Re-Assessment/Exam: 08/04/19 14:55 Patient presents to the ED for the evaluation his constipation. His CT was reviewed prior to his arrival to the ER, it does show quite a bit of stool throughout the entire colon. He does not appear to have any sort of stool within the rectal vault. The patient states that he has been given high Cosamin by the GI specialist for rectal spasms at this time I did repeat this medication, did give him a dose of lactulose, he will get some labs, and some IV fluids as well to help try to get his bowels moving. He will also get 10 mg Reglan for nausea relief, although he states he is not overly nauseous. 08/04/19 17:19 Throughout the course of this patient's stay, he has had multiple small bowel movements, none for which he believes has provided him symptomatic relief. I did discuss his case with Dr. Tirado for possible hospital admission, and she would like him to have a soapsuds enema, and to try some GoLYTELY. She does not believe that he would make a good candidate for hospital admission at this time. Departure - Departure Time of Disposition: 18:11 Disposition: Home, Self-Care 01 Condition: Fair Clinical Impression: Constipation Qualifiers: Constipation type: other constipation type Qualified Code(s): K59.09 - Other constipation - Discharge Information *PRESCRIPTION DRUG MONITORING PROGRAM REVIEWED*: No *COPY OF PRESCRIPTION DRUG MONITORING REPORT IN PATIENT DEMARCUS: No Instructions: Constipation, Adult, [id number] Referrals: Martha Olivier PA-C [Primary Care Provider] - Forms: ED Department Discharge Additional Instructions: You were evaluated in the ER today regarding your abdominal pain and constipation. A combination of IV fluids, IV medications and oral medications were tried at today's visit, this did provide you a few small bowel movements. Your case was discussed with our hospitalist, and she suggested trying GoLYTELY and a soapsuds enema, you have been provided with he is at today's visit. Please take these as directed, if you do not have a rather large bowel movement within 24 hours after these modalities, recommend you seek care for further evaluation. If you should have any increasing abdominal pain, or have nausea/vomiting, please do not hesitate to return to the ER for more emergent management. You were given lactulose, please take as directed on a daily basis to help provide further softening of your stools. Sepsis Event Note - Evaluation Sepsis Screening Result: No Definite Risk - Focused Exam Vital Signs: Vital Signs Temp Pulse Resp BP Pulse Ox 08/04/19 13:45 98.0 F 59 L 20 160/93 H 98 Date Exam was Performed: 08/04/19 Time Exam was Performed: 18:10 - My Orders Last 24 Hours: My Active Orders 08/04/19 14:52 Peripheral IV Care [RC] . DIRECTED Sodium Chloride 0.9% [Saline Flush] 10 ml FLUSH ASDIRECTED PRN Peripheral IV Insertion Adult [OM.PC] Routine 08/04/19 17:20 Enema [RC] ASDIRECTED - Assessment/Plan Last 24 Hours: My Active Orders 08/04/19 14:52 Peripheral IV Care [RC] . DIRECTED Sodium Chloride 0.9% [Saline Flush] 10 ml FLUSH ASDIRECTED PRN Peripheral IV Insertion Adult [OM.PC] Routine 08/04/19 17:20 Enema [RC] ASDIRECTED
[2019-08-04] MEDS ORDERED: Sodium Chloride 0.9% 10 ML Syringe FLUSH PRN (14:52)
[2019-08-04] MEDS ORDERED: Sodium Chloride 0.9% 1,000 ML IV ONE (14:52)
[2019-08-04] MEDS ORDERED: Metoclopramide 10 MG/2 ML SDV IVPUSH ONE (14:53)
[2019-08-04] MEDS ORDERED: oxyCODONE 5 MG Tab PO ONE (17:13)
[2019-08-04] MEDS ORDERED: Polyethylene Glycol/Electrolytes 4,000 ML Bottle PO ONE (17:20)
== END 2019-08-04 18:38 | disposition home or self-care (01) ==
LOC: JD.ED 13:29
DX: K59.09 Other constipation (principal); F17.210 Nicotine dependence, cigarettes, uncomplicated; Z90.49 Acquired absence of other specified parts of digestive tract; Z79.899 Other long term (current) drug therapy
CPT/HCPCS: 36415; 80053; 83690; 85025; 96361; 96374; 99284; A9270; J2765; J7030; 99283

== ENCOUNTER 2019-08-06 04:46 | Emergency (ER) | payer BC ==
[2019-08-06] MEDS ORDERED: HYDROmorphone 1 MG/ML Syringe IVPUSH ONE ×2 (05:30→07:14)
[2019-08-06] MEDS ORDERED: Sodium Chloride 0.9% 1,000 ML IV SCH (05:30)
[2019-08-06] MEDS ORDERED: Ondansetron 4 MG/2 ML SDV IVPUSH ONE ×2 (05:30→07:17)
--- NOTE | 2019-08-06 05:37 | EDM.PDOC ---
ED HPI GENERAL MEDICAL PROBLEM - General Chief Complaint: Abdominal Pain Stated Complaint: abdominal pain and vomitting Time Seen by Provider: 08/06/19 05:05 Source of Information: Reports: Patient, Family (Son) History Limitations: Reports: No Limitations - History of Present Illness INITIAL COMMENTS - FREE TEXT/NARRATIVE: Mr. Oroczo is a 54-year-old man with a past medical history significant for rectal carcinoma, initially discovered on physical exam on 02/24/2019, confirmed with subsequent follow-up. He is being treated with chemotherapy and radiation therapy, however, he has not yet undergone any colorectal surgery. His next round of chemotherapy is due to begin on 08/16/2019. In addition, the patient has a Duragesic patch, and takes oxycodone for pain. Medical records indicate that he was seen in this ED this past 08/04/2019 , after being sent over from the clinic after undergoing a CT scan of his abdomen and pelvis with IV contrast which read: 1. Large amount of stool throughout the colon. 2. Stable appearance in the distal sigmoid colon and rectal malignancy with diffuse wall thickening. 3. Stable pelvic inflammatory/edematous or radiation changes. 4. Stable bilateral inguinal, iliac, pelvic, retroperitoneal metastatic lymphadenopathy. 5. 8 mm nodule in the left lower pulmonary lobe stable since 03/22/2019. 6. Stable sclerotic lesions in the bony pelvis which may be due to old metastatic disease. The patient had already drunk 2 bottles of magnesium citrate and had a mineral oil enema the day before, without good results. He was found to be hemodynamically stable, afebrile. His rectal exam was unremarkable, with the exception of mild generalized abdominal tenderness. Work-up included a CBC, CMP , and lipase level, all of which were grossly unremarkable. He was given sublingual hyoscyamine, oral lactulose, IV metoclopramide, and oral oxycodone. During his ED visit, he had numerous bowel movements without much symptomatic relief. He was discharged home with a gallon of GoLYTELY. The patient now returns to the ED stating that he drank half a gallon of the GoLYTELY, then developed even worse generalized abdominal pain. He states that he has had additional bowel movements, which have turned to diarrhea. He also developed nausea and emesis around 02:00 this morning, along with increased abdominal pain. No recent fever or chills. The patient reports recurrent nausea from his chemotherapy. He reports having a cough for the past few days, productive of brownish sputum, along with slight dyspnea, even at rest. No dysuria, although he states that it is occasionally difficult for him to urinate. The patient acknowledges that he ordinarily takes MiraLAX, but ran out of it this past 08/04/2019. The patient's PCP is CADEN Ortiz. His Oncologist is Dr. Jl Lubin. His Colorectal Surgeon is Dr. Rodrigo Honeycutt. His Radiation Oncologist is Dr. Nakul Ortiz. Abdomen Pain Score (Numeric/FACES): 10 - Related Data Allergies Allergy/AdvReac Type Severity Reaction Status Date / Time No Known Allergies Allergy Verified 08/06/19 04:54 Home Meds: Home Meds oxyCODONE HCl/Acetaminophen [Oxycodone-Acetaminophen 5-325] 2 - 3 tab PO Q6H PRN 04/02/19 [History] Albuterol Sulfate [Albuterol Sulfate Hfa] 1 - 2 puff INH Q4H 06/14/19 [History] Bisacodyl 5 mg PO DAILY 06/14/19 [History] Diphenoxylate HCl/Atropine [Diphenoxylate-Atrop 2.5-0.025] 2 tab PO TID PRN 07/03 [History] Magnesium Citrate [Citrate of Magnesia] 296 ml PO ASDIRECTED PRN 06/14/19 [ History] Magnesium Hydroxide [Milk of Magnesia] 30 ml PO BEDTIME PRN 06/14/19 [History] Ondansetron [Zofran] 8 mg BUCCAL TID PRN 06/14/19 [History] Sucralfate 1 gm PO QID 06/14/19 [History] fentaNYL [Duragesic] 50 mcg TD Q72H 06/14/19 [History] oxyCODONE 5 - 325 mg PO Q6H PRN 06/14/19 [History] Hyoscyamine Sulfate [Hyoscyamine Sulfate Sr] 1 tab PO BID PRN 08/04/19 [History] LORazepam [Ativan] 0.5 mg PO QID PRN 08/04/19 [History] Lactulose [Cephulac] 20 gm PO DAILY #30 cup 08/04/19 [Rx] Past Medical History Endocrine/Metabolic History: Reports: Obesity/BMI 30+ Oncologic (Cancer) History: Reports: Colon (dx'd 02/24/2019) - Past Surgical History HEENT Surgical History: Reports: Oral Surgery (edentulous), Tonsillectomy, Other (See Below) (Bilateral ear surgery as an infant) Cardiovascular Surgical History: Reports: Other (See Below) (Left Port-A-Cath) GI Surgical History: Reports: Cholecystectomy (2013), Colonoscopy (x 1) Neurological Surgical History: Reports: Lumbar Spine (microdiscectomy around 1999) Musculoskeletal Surgical History: Reports: Carpal Tunnel (bilateral) Social & Family History - Tobacco Use Smoking Status *Q: Current Every Day Smoker Years of Tobacco use: 43 Packs/Tins Daily: 1.5 - Caffeine Use Caffeine Use: Reports: Coffee - Alcohol Use Alcohol Use History: Yes Alcohol Use Frequency: Rarely - Recreational Drug Use Recreational Drug Use: Yes Drug Use in Last 12 Months: No Recreational Drug Type: Reports: Marijuana/Hashish (last smoked around 2009), Methamphetamine (last smoked/injected 2011) - Living Situation & Occupation Living situation: Reports: , with Family (Son) 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 Musculoskeletal: Reports: Back Pain (chronic) ED EXAM, GI/ABD - Physical Exam Exam: See Below Exam Limited By: No Limitations General Appearance: Alert, WD/WN, Mild Distress (uncomfortable) Eyes: Bilateral: Normal Appearance, EOMI Ears: Normal External Exam, Hearing Grossly Normal Nose: Normal Inspection Throat/Mouth: Normal Inspection, Normal Lips, Normal Voice, No Airway Compromise Head: Atraumatic, Normocephalic Neck: Normal Inspection, Full Range of Motion Respiratory/Chest: No Respiratory Distress, Lungs Clear, Normal Breath Sounds, No Accessory Muscle Use Cardiovascular: Normal Peripheral Pulses, Regular Rate, Rhythm, No Edema, No Gallop, No JVD, No Murmur, No Rub GI/Abdominal Exam: Normal Bowel Sounds, Soft, No Organomegaly, No Distention, No Abnormal Bruit, No Mass, Tender (Generalized, non-focal), Other (Protruberant ) (Male) Exam: Deferred Rectal (Males) Exam: Deferred Back Exam: Normal Inspection, Full Range of Motion, NT Extremities: Normal Inspection, Normal Range of Motion, No Pedal Edema, Normal Capillary Refill Neurological: Alert, Oriented, Normal Cognition, No Motor/Sensory Deficits Psychiatric: Normal Affect Skin Exam: Warm, Dry, Intact, Normal Color, No Rash Course - Vital Signs Last Recorded V/S: Last Vital Signs Temp 36.7 C 08/06/19 04:52 Pulse 76 08/06/19 04:52 Resp 18 08/06/19 04:52 BP 186/115 H 08/06/19 04:52 Pulse Ox 93 L 08/06/19 07:30 - Orders/Labs/Meds Orders: Active Orders 24 hr Category Date Time Status Oxygen Therapy, ED [RC] ASDIRECTED Care 08/06/19 07:34 Active Chest 2V [CR] Stat Exams 08/06/19 05:29 Taken KUB [Abdomen 1V Flat] [CR] Stat Exams 08/06/19 05:29 Taken Sodium Chloride 0.9% [Normal Saline] 1,000 ml Med 08/06/19 05:30 Active IV ASDIRECTED Medication Orders Sodium Chloride (Normal Saline) 1,000 mls @ 150 mls/hr IV ASDIRECTED MICHAELA Last Admin: 08/06/19 05:50 Dose: 150 mls/hr Labs: Laboratory Tests 08/06/19 08/06/19 08/06/19 Range/Units 05:30 05:40 05:40 WBC 9.49 H (4.23-9.07) K/mm3 RBC 4.31 L (4.63-6.08) M/mm3 Hgb 13.2 L (13.7-17.5) gm/dl Hct 40.5 (40.1-51.0) % MCV 94.0 H (79.0-92.2) fl MCH 30.6 (25.7-32.2) pg MCHC 32.6 (32.2-35.5) g/dl RDW Std Deviation 59.1 H (35.1-43.9) fL Plt Count 229 (163-337) K/mm3 MPV 9.5 (9.4-12.3) fl Neutrophils % (Manual) 92 H (40-60) % Band Neutrophils % 0 (0-10) % Lymphocytes % (Manual) 7 L (20-40) % Atypical Lymphs % 0 % Monocytes % (Manual) 1 L (2-10) % Eosinophils % (Manual) 0 L (0.8-7.0) % Basophils % (Manual) 0 L (0.2-1.2) Platelet Estimate Adequate RBC Morph Comment Normal Sodium 139 (136-145) mEq/L Potassium 3.5 (3.5-5.1) mEq/L Chloride 100 (98-107) mEq/L Carbon Dioxide 27 (21-32) mEq/L Anion Gap 15.5 H (5-15) BUN 8 (7-18) mg/dL Creatinine 0.8 (0.7-1.3) mg/dL Est Cr Clr Drug Dosing 115.04 mL/min Estimated GFR (MDRD) > 60 (>60) mL/min BUN/Creatinine Ratio 10.0 L (14-18) Glucose 123 H (74-106) mg/dL Calcium 9.0 (8.5-10.1) mg/dL Magnesium 2.0 (1.8-2.4) mg/dl Total Bilirubin 0.8 (0.2-1.0) mg/dL AST 14 L (15-37) U/L ALT 12 L (16-63) U/L Alkaline Phosphatase 107 (46-116) U/L Total Protein 7.4 (6.4-8.2) g/dl Albumin 3.8 (3.4-5.0) g/dl Globulin 3.6 gm/dL Albumin/Globulin Ratio 1.1 (1-2) Lipase 43 L (73-393) U/L Urine Color Yellow (Yellow) Urine Appearance Clear (Clear) Urine pH 6.0 (5.0-8.0) Ur Specific [place] 1.025 (1.005-1.030) Urine Protein 1+ H (Negative) Urine Glucose (UA) Negative (Negative) Urine Ketones 1+ H (Negative) Urine Occult Blood Negative (Negative) Urine Nitrite Negative (Negative) Urine Bilirubin Negative (Negative) Urine Urobilinogen 1.0 (0.2-1.0) Ur Leukocyte Esterase Negative (Negative) U Hyaline Cast (Auto) 0-5 (0-5) /lpf Urine RBC 0-5 (0-5) /hpf Urine WBC 0-5 (0-5) /hpf Ur Squamous Epith Cells Not seen (0-5) /hpf Urine Bacteria Few (FEW) /hpf Urine Mucus Few (FEW) /hpf Meds: Medications Generic Name Dose Route Start Last Admin Trade Name Crissy PRN Reason Stop Dose Admin Sodium Chloride 1,000 mls @ 150 mls/hr 08/06/19 05:30 08/06/19 05:50 Normal Saline IV 150 mls/hr ASDIRECTED MICHAELA Administration Discontinued Medications Generic Name Dose Route Start Last Admin Trade Name Crissy PRN Reason Stop Dose Admin Hydromorphone HCl 1 mg 08/06/19 05:30 08/06/19 05:50 Dilaudid IVPUSH 08/06/19 05:31 1 mg ONETIME ONE Administration Hydromorphone HCl 1 mg 08/06/19 07:14 08/06/19 07:25 Dilaudid IVPUSH 08/06/19 07:15 1 mg ONETIME ONE Administration Ondansetron HCl 4 mg 08/06/19 05:30 08/06/19 05:50 Zofran IVPUSH 08/06/19 05:31 4 mg ONETIME ONE Administration Ondansetron HCl 4 mg 08/06/19 07:17 08/06/19 07:23 Zofran IVPUSH 08/06/19 07:18 4 mg ONETIME ONE Administration - Re-Assessments/Exams Free Text/Narrative Re-Assessment/Exam: 08/06/19 05:32 The patient is on a Duragesic patch and takes oxycodone for his chronic back pain, which is made worse by constipation, which is caused by a combination of his colorectal cancer and is taking opioids. He needs to try to stay ahead of the constipation by taking numerous stool softeners and laxatives, but it sounds like he ran out of MiraLAX on Wednesday, and his constipation has been increasing since. He now presents with generalized abdominal pain and tenderness after drinking half a gallon of GoLYTELY. Since he just had a CT scan of his abdomen and pelvis with IV contrast on Wednesday , 08/04/2019, I do not see the need to repeat it again today, however, I would like to get a KUB to see how much stool is still present in his colon. I have also ordered a chest x-ray due to his report of a few days of cough and dyspnea. In addition, I have ordered blood work and urinalysis. In the meantime, the patient will be given IV Dilaudid, IV Zofran, and IV fluid. We will keep him NPO. 08/06/19 06:17 Two-view chest radiograph appears to be grossly normal. The cardiac silhouette is within normal limits. No pulmonary vascular congestion. No pleural effusions. No focal infiltrate. No pneumothorax. Left-sided Port-A-Cath incidentally noted. Formal read per the Radiologist pending. The KUB appears to demonstrate some material in the cecum and ascending colon, but no stool seen elsewhere. The descending colon is distended with gas, and there is increased gas in the small intestine, as well. No gas or stool seen in the rectum. Formal read per the Radiologist pending. 08/06/19 06:40 The patient CBC is remarkable for a WBC count mildly elevated at 9.49, but with 0% bandemia. His Hgb is slightly depressed at 13.2, but with a Hct normal at 40.5. The remainder of his CBC is unremarkable. His CMP is remarkable for an anion gap slightly elevated at 15.5, but with a bicarbonate normal at 27. His blood glucose is mildly elevated at 123, with the remainder of his CMP being unremarkable. His lipase is within normal limits at 43. His urinalysis is unremarkable. I am concerned that the patient may have thickening of his distal colon, disallowing passage of gas. I wonder if the patient might benefit from a decompressing sigmoidoscopy or colonoscopy. Case discussed with Dr. Lay at 06:35. He feels the patient may benefit from a loop colostomy. The patient is already under the care of Dr. Honeycutt at [facility]. 08/06/19 06:59 The chest x-ray and KUB images were pushed to [facility] at 06:41. Case discussed with Nakul at [facility] at 06:51. Nakul subsequently spoke to Dr. Cope, the Surgeon on-call, who agreed that the patient should be transferred, but wanted the patient to be admitted to the Hospitalist. Case then discussed with Dr. Suarez, Hospitalist at [facility], at 06: 57. He accepted the patient for transfer to their facility. The patient will be transported by ground ambulance. 08/06/19 07:02 Notified by Belinda OLSON that [facility] called back notifying us that they do not have any beds available at this time, but they expect discharges today, therefore we will keep the patient here in the ED until we are notified that a bed is available. 08/06/19 07:09 The above plan was discussed with the patient and his son. The patient is agreeable. Departure - Departure Time of Disposition: 07:00 Disposition: DC/Tfer to [facility] 02 Condition: Good Clinical Impression: Colonic obstruction - Discharge Information *PRESCRIPTION DRUG MONITORING PROGRAM REVIEWED*: Not Applicable *COPY OF PRESCRIPTION DRUG MONITORING REPORT IN PATIENT DEMARCUS: Not Applicable Referrals: Martha Olivier PA-C [Primary Care Provider] - Jl Lubin MD [Ordering Only Provider] - Rodrigo Honeycutt MD [Ordering Only Provider] - Nakul Ortiz MD [Ordering Only Provider] - Forms: ED Department Discharge Sepsis Event Note - Evaluation Sepsis Screening Result: No Definite Risk - Focused Exam Vital Signs: Vital Signs Temp Pulse Resp BP Pulse Ox Pulse Ox 08/06/19 07:30 93 L 08/06/19 04:52 36.7 C 76 18 186/115 H 95 Date Exam was Performed: 08/06/19 Time Exam was Performed: 07:38 - My Orders Last 24 Hours: My Active Orders 08/06/19 05:29 Chest 2V [CR] Stat KUB [Abdomen 1V Flat] [CR] Stat 08/06/19 05:30 Sodium Chloride 0.9% [Normal Saline] 1,000 ml IV ASDIRECTED 08/06/19 07:34 Oxygen Therapy, ED [RC] ASDIRECTED - Assessment/Plan Last 24 Hours: My Active Orders 08/06/19 05:29 Chest 2V [CR] Stat KUB [Abdomen 1V Flat] [CR] Stat 08/06/19 05:30 Sodium Chloride 0.9% [Normal Saline] 1,000 ml IV ASDIRECTED 08/06/19 07:34 Oxygen Therapy, ED [RC] ASDIRECTED
[2019-08-06] MEDS ORDERED: HYDROmorphone 0.5 MG/0.5 ML Syringe IVPUSH ONE (09:21)
--- NOTE | 2019-08-06 18:21 | CR ---
Chest: 2 views of the chest were obtained. Comparison: Prior chest x-ray of 05/16/19. Heart size and mediastinum are normal. Left-sided infusion port is seen. Lung markings are mildly increased which appears stable. No definite acute parenchymal change is appreciated. No discrete bony abnormality is appreciated. Impression: 1. Nothing acute is appreciated on 2 view chest x-ray. 2. Findings as noted above. Diagnostic code #2 This report was dictated in [place] Standard Time
--- NOTE | 2019-08-06 18:25 | CR ---
Abdomen: Supine view of the abdomen was obtained. Comparison: Prior abdominal x-ray of 07/18/19. Multiple loops of dilated and air-filled small bowel are noted. Surgical clips are seen from prior cholecystectomy. Bony structures show degenerative change within the lower sacroiliac joints. Mild joint space narrowing is seen within the superior right hip. Impression: 1. Findings suspicious for mid to distal small bowel obstruction. Less likely etiology would be ileus. 2. Other findings which are believed to be incidental as noted above. Diagnostic code #3 This report was dictated in [place] Standard Time
== END 2019-08-06 10:00 ==
LOC: JD.ED 04:46
DX: K56.609 Unspecified intestinal obstruction, unspecified as to partial versus complete obstruction (principal); E66.9 Obesity, unspecified; Z68.33 Body mass index [BMI] 33.0-33.9, adult; F17.210 Nicotine dependence, cigarettes, uncomplicated; Z90.49 Acquired absence of other specified parts of digestive tract; Z79.899 Other long term (current) drug therapy
CPT/HCPCS: 36415; 71046; 74018; 80053; 81001; 83690; 83735; 85007; 85027; 96361; 96374; 96375; 96376; 99285; J1170; J2405; J7030

== ENCOUNTER 2019-10-14 20:44 | Emergency (ER) | payer BC ==
[2019-10-14] MEDS ORDERED: Sodium Chloride 0.9% 1,000 ML IV SCH (21:15)
--- NOTE | 2019-10-14 21:17 | EDM.PDOC ---
ED HPI GENERAL MEDICAL PROBLEM - General Chief Complaint: Abdominal Pain Stated Complaint: STOMACH PAIN/CA PT Time Seen by Provider: 10/14/19 20:45 Source of Information: Reports: Patient History Limitations: Reports: No Limitations - History of Present Illness INITIAL COMMENTS - FREE TEXT/NARRATIVE: TRIAGE NOTE --Pt states he started new chemo medication last week for colon cancer. States he has severe abdominal pain, and bloody stools. As above. Patient has colorectal cancer. This was diagnosed about 7 months ago. There is been no surgery. He has had radiation and has been undergoing chemotherapy. Chemotherapy session 3 days ago. Since then he has had nausea and vomiting and generalized discomfort as well as abdominal pain which has started within the past several hours. Risk factors as evident, colorectal cancer. Noted to be metastatic to bone with radiation to skeletal mets anticipated. He has taken a variety of medications at home, see list, without relief of his symptoms. He has been unable to take any substantial amount of p.o. nourishment. - Related Data Allergies Allergy/AdvReac Type Severity Reaction Status Date / Time No Known Allergies Allergy Verified 10/14/19 20:58 Home Meds: Home Meds oxyCODONE HCl/Acetaminophen [Oxycodone-Acetaminophen 5-325] 2 - 3 tab PO Q6H PRN 04/02/19 [History] Diphenoxylate HCl/Atropine [Diphenoxylate-Atrop 2.5-0.025] 2 tab PO TID PRN 07/03 [History] Magnesium Citrate [Citrate of Magnesia] 296 ml PO ASDIRECTED PRN 06/14/19 [ History] Magnesium Hydroxide [Milk of Magnesia] 30 ml PO BEDTIME PRN 06/14/19 [History] Ondansetron [Zofran] 8 mg BUCCAL TID PRN 06/14/19 [History] Sucralfate 1 gm PO QID 06/14/19 [History] bisacodyL [Bisacodyl] 5 mg PO DAILY PRN 06/14/19 [History] fentaNYL [Duragesic] 50 mcg TD Q72H 06/14/19 [History] Hyoscyamine Sulfate [Hyoscyamine Sulfate Sr] 1 tab PO BID PRN 08/04/19 [History] LORazepam [Ativan] 0.5 mg PO QID PRN 08/04/19 [History] Past Medical History Musculoskeletal History: Reports: Back Pain, Chronic Endocrine/Metabolic History: Reports: Obesity/BMI 30+ Oncologic (Cancer) History: Reports: Colon (dx'd 02/24/2019) - Past Surgical History HEENT Surgical History: Reports: Oral Surgery (edentulous), Tonsillectomy, Other (See Below) (Bilateral ear surgery as an ) Cardiovascular Surgical History: Reports: Other (See Below) (Left Port-A-Cath) GI Surgical History: Reports: Cholecystectomy (2013), Colonoscopy (x 1) Neurological Surgical History: Reports: Lumbar Spine (microdiscectomy around 1999) Musculoskeletal Surgical History: Reports: Carpal Tunnel (bilateral) Social & Family History - Tobacco Use Smoking Status *Q: Current Every Day Smoker - Caffeine Use Caffeine Use: Reports: Coffee - Living Situation & Occupation Living situation: Reports: , with Family (Son) 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 ED EXAM, GI/ABD - Physical Exam Exam: See Below Exam Limited By: No Limitations General Appearance: Alert, WD/WN, No Apparent Distress (No actual distress but manifestly uncomfortable) Eyes: Bilateral: EOMI Ears: Normal External Exam Nose: Normal Inspection Throat/Mouth: Normal Inspection Head: Atraumatic, Normocephalic Neck: Supple, Non-Tender Respiratory/Chest: No Respiratory Distress, Lungs Clear, No Accessory Muscle Use , Chest Non-Tender Cardiovascular: Regular Rate, Rhythm, No Edema GI/Abdominal Exam: Soft, Tender (Diffusely tender). No: Rigid, Rebound Back Exam: Normal Inspection Extremities: Normal Inspection Neurological: Alert, Oriented, Normal Cognition, No Motor/Sensory Deficits Psychiatric: Normal Affect Skin Exam: Warm, Dry Course - Vital Signs Last Recorded V/S: Last Vital Signs Temp 36.4 C 10/14/19 20:55 Pulse 63 10/14/19 20:55 Resp 20 10/14/19 20:55 BP 146/96 H 10/14/19 20:55 Pulse Ox 100 10/14/19 20:55 - Orders/Labs/Meds Orders: Active Orders 24 hr Category Date Time Status EKG Documentation Completion [RC] STAT Care 10/14/19 21:02 Active Implanted Port Access [RC] DAILY Care 05/02/20 21:10 Active Abdomen Pelvis w Cont [CT] Stat Exams 10/14/19 22:19 Taken Sodium Chloride 0.9% [Normal Saline] 1,000 ml Med 10/14/19 21:15 Active IV ASDIRECTED Sodium Chloride 0.9% [Normal Saline] 100 ml Med 10/14/19 22:45 Active IV ASDIRECTED Sodium Chloride 0.9% [Saline Flush] Med 10/14/19 22:39 Active 10 ml FLUSH ONETIME PRN Medication Orders Sodium Chloride (Normal Saline) 1,000 mls @ 150 mls/hr IV ASDIRECTED MICHAELA Last Admin: 10/14/19 21:08 Dose: 150 mls/hr Sodium Chloride (Normal Saline) 100 mls @ 80 mls/hr IV ASDIRECTED MICHAELA Last Admin: 10/14/19 22:52 Dose: 80 mls/hr Sodium Chloride (Saline Flush) 10 ml FLUSH ONETIME PRN PRN Reason: KEEP VEIN OPEN Last Admin: 10/14/19 22:52 Dose: 10 ml Labs: Laboratory Tests 10/14/19 10/14/19 10/14/19 Range/Units 21:04 21:04 21:04 WBC 4.58 (4.23-9.07) K/mm3 RBC 4.61 L (4.63-6.08) M/mm3 Hgb 13.9 (13.7-17.5) gm/dl Hct 41.1 (40.1-51.0) % MCV 89.2 D (79.0-92.2) fl MCH 30.2 (25.7-32.2) pg MCHC 33.8 (32.2-35.5) g/dl RDW Std Deviation 48.4 H (35.1-43.9) fL Plt Count 251 (163-337) K/mm3 MPV 8.7 L (9.4-12.3) fl Neutrophils % (Manual) 85 H (40-60) % Band Neutrophils % 0 (0-10) % Lymphocytes % (Manual) 9 L (20-40) % Atypical Lymphs % 0 % Monocytes % (Manual) 3 (2-10) % Eosinophils % (Manual) 1 (0.8-7.0) % Basophils % (Manual) 2 H (0.2-1.2) Platelet Estimate Adequate RBC Morph Comment Normal PT 10.7 (9.7-12.0) SECONDS INR 0.98 APTT 30 (22-31) SECONDS Sodium 138 (136-145) mEq/L Potassium 3.7 (3.5-5.1) mEq/L Chloride 101 (98-107) mEq/L Carbon Dioxide 28 (21-32) mEq/L Anion Gap 12.7 (5-15) BUN 19 H (7-18) mg/dL Creatinine 0.7 (0.7-1.3) mg/dL Est Cr Clr Drug Dosing 131.48 mL/min Estimated GFR (MDRD) > 60 (>60) mL/min BUN/Creatinine Ratio 27.1 H (14-18) Glucose 83 (74-106) mg/dL Calcium 9.2 (8.5-10.1) mg/dL Magnesium 1.8 (1.8-2.4) mg/dl Total Bilirubin 0.7 (0.2-1.0) mg/dL AST 21 (15-37) U/L ALT 16 (16-63) U/L Alkaline Phosphatase 140 H (46-116) U/L Troponin I < 0.017 (0.00-0.056) ng/mL Total Protein 6.8 (6.4-8.2) g/dl Albumin 3.5 (3.4-5.0) g/dl Globulin 3.3 gm/dL Albumin/Globulin Ratio 1.1 (1-2) Lipase 67 L (73-393) U/L Meds: Medications Generic Name Dose Route Start Last Admin Trade Name Freq PRN Reason Stop Dose Admin Sodium Chloride 1,000 mls @ 150 mls/hr 10/14/19 21:15 10/14/19 21:08 Normal Saline IV 150 mls/hr ASDIRECTED MICHAELA Administration Sodium Chloride 100 mls @ 80 mls/hr 10/14/19 22:45 10/14/19 22:52 Normal Saline IV 80 mls/hr ASDIRECTED MICHAELA Administration Sodium Chloride 10 ml 10/14/19 22:39 10/14/19 22:52 Saline Flush FLUSH 10 ml ONETIME PRN Administration KEEP VEIN OPEN Discontinued Medications Generic Name Dose Route Start Last Admin Trade Name Freq PRN Reason Stop Dose Admin Iopamidol 100 ml 10/14/19 22:39 10/14/19 22:52 Isovue-300 (61%) IVPUSH 10/14/19 22:40 100 ml ONETIME ONE Administration Lorazepam 1 mg 10/14/19 21:55 10/14/19 22:05 Ativan IVPUSH 10/14/19 21:56 1 mg ONETIME ONE Administration - Re-Assessments/Exams Free Text/Narrative Re-Assessment/Exam: 10/15/19 00:45 The patient has been evaluated for his pain and discomfort and nausea. A CT of the abdomen and pelvis was done. MOST significantly this CT shows thickening of the sigmoid colon wall and rectal wall producing "some degree of obstruction " with a large volume of stool also noted throughout the colon. The patient is too uncomfortable to be sent home. Hospitalist at this facility feels that this is probably requiring a higher level of care. Patient will go to [facility] where he has been receiving definitive care. He was accepted by hospitalist Dr. Umana for admission to her service. Discussed with patient who is quite happy to be admitted for further management. Departure - Departure Time of Disposition: 00:48 Disposition: DC/Tfer to [facility] 02 Condition: Fair Clinical Impression: Large bowel obstruction, Colorectal cancer, stage IV Abdominal pain Qualifiers: Abdominal location: left lower quadrant Qualified Code(s): R10.32 - Left lower quadrant pain - Discharge Information Referrals: Blake Castillo MD [Primary Care Provider] - Forms: ED Department Discharge Sepsis Event Note - Evaluation Sepsis Screening Result: No Definite Risk - Focused Exam Vital Signs: Vital Signs Temp Pulse Resp BP Pulse Ox 10/14/19 20:55 36.4 C 63 20 146/96 H 100 Date Exam was Performed: 10/15/19 Time Exam was Performed: 00:45 - My Orders Last 24 Hours: My Active Orders 10/14/19 21:02 EKG Documentation Completion [RC] STAT 10/14/19 21:10 Implanted Port Access [RC] DAILY 10/14/19 21:15 Sodium Chloride 0.9% [Normal Saline] 1,000 ml IV ASDIRECTED 10/14/19 22:19 Abdomen Pelvis w Cont [CT] Stat 10/14/19 22:39 Sodium Chloride 0.9% [Saline Flush] 10 ml FLUSH ONETIME PRN 10/14/19 22:45 Sodium Chloride 0.9% [Normal Saline] 100 ml IV ASDIRECTED - Assessment/Plan Last 24 Hours: My Active Orders 10/14/19 21:02 EKG Documentation Completion [RC] STAT 10/14/19 21:10 Implanted Port Access [RC] DAILY 10/14/19 21:15 Sodium Chloride 0.9% [Normal Saline] 1,000 ml IV ASDIRECTED 10/14/19 22:19 Abdomen Pelvis w Cont [CT] Stat 10/14/19 22:39 Sodium Chloride 0.9% [Saline Flush] 10 ml FLUSH ONETIME PRN 10/14/19 22:45 Sodium Chloride 0.9% [Normal Saline] 100 ml IV ASDIRECTED
[2019-10-14] MEDS ORDERED: LORazepam 2 MG/ML SDV IVPUSH ONE (21:55)
[2019-10-14] MEDS ORDERED: Sodium Chloride 0.9% 10 ML Syringe FLUSH PRN (22:39)
[2019-10-14] MEDS ORDERED: Iopamidol 612 MG/ML 100 ML Bottle IVPUSH ONE (22:39)
[2019-10-14] MEDS ORDERED: Sodium Chloride 0.9% 100 ML IV SCH (22:45)
[2019-10-15] MEDS ORDERED: LORazepam 2 MG/ML SDV IVPUSH ONE (01:47)
--- NOTE | 2019-10-15 11:30 | CT ---
CT abdomen and pelvis Technique: Multiple axial sections were obtained from above the dome of the diaphragm inferiorly through the pubic symphysis. Intravenous contrast was utilized. No oral contrast has been given. Delayed images were also obtained through the abdomen and pelvis. Comparison: The visualized lung bases show nothing acute. Liver contains no focal parenchymal abnormality. Spleen appears within normal limits. Kidneys show a small cyst without hydronephrosis or solid appearing mass. Slight nodularity is noted within the adrenal glands which is believed to be stable. Pancreas appears within normal limits. Aorta shows no aneurysm. Mild retroperitoneal adenopathy is seen which appears to be fairly stable. Diffuse circumferential wall thickening seen within the rectum and sigmoid colon. Findings are felt to cause slight obstruction with proximal increased stool is noted within the colon. Appendix is not visualized with certain. No free fluid or inflammatory change is appreciated. Delayed images shows contrast within the ureters and bladder. Bone window settings were reviewed which shows degenerative change primarily at L5-S1 with bilateral spondylolytic defects, severe disc space narrowing and vacuum phenomena as well as mild spondylolisthesis. Impression: 1. Circumferential thickening within the rectum and rectosigmoid regions. This may represent radiation change if patient has such history. Colitis is an area of previous tumor is possible. 2. Stable retroperitoneal adenopathy. 3. Mild increased stool within the colon. Findings most likely relate to mild obstruction at the area of bowel wall thickening at the rectosigmoid junction. 4. Other findings believed to be incidental as described above. Diagnostic code #3 This report was dictated in MDT I agree with preliminary report from [facility], finalized on 10/15/19, 12:29 AM Central Daylight Time
== END 2019-10-15 02:10 ==
LOC: JD.ED 20:44
DX: K56.609 Unspecified intestinal obstruction, unspecified as to partial versus complete obstruction (principal); C19 Malignant neoplasm of rectosigmoid junction; E66.9 Obesity, unspecified; F17.200 Nicotine dependence, unspecified, uncomplicated; Z68.30 Body mass index [BMI] 30.0-30.9, adult; Z79.899 Other long term (current) drug therapy; Z90.49 Acquired absence of other specified parts of digestive tract
CPT/HCPCS: 36415; 74177; 80053; 83690; 83735; 84484; 85007; 85027; 85610; 85730; 93005; 96361; 96374; 99285; J2060; J7030; J7050; Q9967; 93010